=== PATIENT | male | born 1945 | race Caucasian/White ===

== ENCOUNTER 2023-03-11 20:57 | Emergency (ER) | payer MEDICARE, MEDICAID, SELFPAY ==
[2023-03-11 20:59] VITALS: BP 199/118; PULSE 132; RESP 18; TEMP 36.4; O2SAT 100; BMI 28.3
--- NOTE | 2023-03-11 21:01 | EX.ED.DYSGE1 ---
HPI History of Present Illness Chief Complaint: Complaint Detail of Chief Complaint: Pain since Olvera was removed at facility Informant: patient Onset/Context/Timing Onset: Hours Context: Sudden Onset Timing: Continuous Quality: Pain Location: Localized to the suprapubic region and penis Current Severity: Severe Maximum Severity: Severe Worsened by: Removal of Olvera Relieved by: Nothing Associated Symptoms Associated Symptoms: No other symptoms Narrative Narrative: Patient is a 77-year-old male who presents because of suprapubic pain and inability to urinate since Olvera was removed. He has history of urinary retention. He denies fever or chills. He is very hard of hearing. He denies nausea or vomiting. He has no other complaints. Prior similar symptoms: Yes (Per paperwork that accompanied patient from nursing facility) Recent Illness/Hospitalization: Yes [facility] Medical History (Updated 03/11/23 @ 21:[address] Stephen Choe MD) Alcohol abuse Complication of urinary stent Dementia Psychotic disorder with delusions Allergy/AdvReac Type Severity Reaction Status Date / Time No Known Allergies Allergy Verified 03/11/23 20:59 Social History (Updated 03/11/23 @ 21:[address] Stephen Choe MD) household members: none housing: assisted Smoking Status: Current every day smoker tobacco type: cigarettes substance use type: does not use ROS ROS ED Constitutional Constitutional ED: Denies chills, fever(s) or subjective Genitourinary Genitourinary ED: Reports other Details: Inability to urinate since Olvera was removed ; Denies dysuria, hematuria or urinary frequency Musculoskeletal Musculoskeletal: Denies arthralgias, back pain, myalgias or neck pain Integumentary Denies rash Allergic/Immunologic Allergic/Immunologic ED: Denies mouth swelling, tongue swelling or urticaria EXAM Physical Exam Const Vital Signs: 03/11/23 20:59 Temperature 97.5 F L Temperature Source Temporal Pulse Rate 132 H Respiratory Rate 18 Blood Pressure 199/118 H Blood Pressure Mean 145 Pulse Ox 100 Positive well nourished and well developed Constitutional Narrative: Patient is screaming in obvious discomfort. General Appearance ED: well developed; Negative for cyanotic, diaphoretic or pallor HEENT Reports moist mucous membranes HEENT Narrative: Head is atraumatic and normocephalic. Ears are normal. Nares are patent. Mucosa is moist. Patient is very hard of hearing. Eyes PERRL and EOMs intact bilaterally General Eye ED: Negative for pale conjunctiva or scleral icterus Neck no lymphadenopathy, supple and no JVD Chest Wall inspection of chest normal and palpation of chest normal Resp normal respiratory effort and clear to auscultation bilaterally Cardio regular rhythm, S1 normal heart sound, S2 normal heart sound and no murmurs Rate: tachycardic GI Negative for non-tender, non-distended or hepatosplenomegaly GI Narrative: Bladder is distended to percussion. Auscultation: hypoactive bowel sounds Narrative: External genital unremarkable. Back/Spine no CVA tenderness Extremity normal to inspection Neuro oriented x3 and CN's II-XII intact bilaterally Sensorium / Orientation: alert Skin no rashes or lesions noted and no wounds General Skin Exam: Negative for jaundice or pallor MDM MDM MDM Narrative Medical decision making narrative: We will bladder scan if bladder scan is positive we will place Olvera otherwise we will work-up his abdominal pain. Bladder scan is approximately 546 cc. Uro-Jet and Olvera was ordered. Treatment and Re-Evaluation :: Olvera was placed with greater than 800 cc of urine. Patient's pain is resolved. Patient be discharged to home/nursing facility Discharge Plan Triage Chief Complaint: Complaint ED Provider: Stephen Choe Dx/Rx/DC Orders Clinical Impression: Acute urinary retention Instructions: ED Olvera Catheter, Care, ED Urinary Retention, Male Primary Care Provider: Ramy Jay Referrals: Ramy Jay [Primary Care Provider] - 1 Week Disposition Disposition: Home, Self Care
[2023-03-11] MEDS: Lidocaine Jelly 2% 20 ML Syringe (URO-JET) 1 APPLIC TOPICAL (21:03)
--- NOTE | 2023-03-11 22:10 | ED.RN ---
REPORT CALLED TO MARYSOL HAN
[2023-03-11 22:29] VITALS: BP 157/86; PULSE 77; RESP 16; O2SAT 98
== END 2023-03-11 23:29 | disposition home or self-care (01) ==
LOC: ED 21:29
PROVIDERS: Emergency Provider Emergency Medicine; PCP Family Medicine; Visit Provider Emergency Medicine
DX: R33.9 Retention of urine, unspecified (principal); R10.2 Pelvic and perineal pain; F17.210 Nicotine dependence, cigarettes, uncomplicated; H91.90 Unspecified hearing loss, unspecified ear
CPT/HCPCS: 51702; 99285

== ENCOUNTER 2023-05-26 03:39 | Emergency (ER) | payer MEDICARE, MEDICAID, SELFPAY ==
[2023-05-26 03:41] VITALS: BP 167/84; PULSE 124; RESP 22; TEMP 36.1; O2SAT 98; BMI 27.4
--- NOTE | 2023-05-26 03:46 | EX.ED.GUMALE ---
HPI History of Present Illness Chief Complaint: Complaint Detail of Chief Complaint: Urinary retention Informant: patient Narrative Narrative: Patient presents secondary to urinary retention. EMS transported the patient from [place] [facility]. Apparently his Olvera catheter got removed. Patient states staff was unable to place a new one. He also has baseline dementia and states he does not know why he even has a catheter to begin with. He complains of pain over the suprapubic area. [facility] Medical History Alcohol abuse Complication of urinary stent Dementia Psychotic disorder with delusions Allergy/AdvReac Type Severity Reaction Status Date / Time No Known Allergies Allergy Verified 05/26/23 03:40 Social History household members: none housing: skilled nursing Smoking Status: Current every day smoker tobacco type: cigarettes substance use type: does not use ROS ROS ED Constitutional Constitutional ED: Denies chills or fever(s) ENT ENT ED: Denies rhinorrhea or sore throat Cardiovascular Cardiovascular: Denies chest pain Respiratory/Chest Respiratory/Chest: Denies cough or dyspnea Gastrointestinal Gastrointestinal: Reports abdominal pain; Denies nausea or vomiting Genitourinary Genitourinary ED: Reports difficulty urinating Musculoskeletal Musculoskeletal: Denies back pain or extremity pain Integumentary Denies Abrasions or rash Neurologic Neurologic: Denies headache(s) or weakness Psychiatric Psychiatric: Reports anxiety; Denies depression Allergic/Immunologic Allergic/Immunologic ED: Denies lip swelling or urticaria EXAM Physical Exam Const Vital Signs: 05/26/23 03:41 Temperature 97.0 F L Temperature Source Temporal Pulse Rate 124 H Respiratory Rate 22 H Blood Pressure 167/84 H Blood Pressure Mean 111 Pulse Ox 98 Oxygen Delivery Method Room Air Positive well nourished and well developed General Appearance ED: well developed HEENT Reports moist mucous membranes Eyes EOMs intact bilaterally Resp normal respiratory effort and clear to auscultation bilaterally Cardio regular rhythm Rate: tachycardic GI GI Narrative: Suprapubic tenderness. Extremity normal to inspection Neuro moves all extremities MDM MDM MDM Narrative Medical decision making narrative: Uro-Jet ordered along with Olvera catheter insertion. Nursing staff was able to place this without difficulty. The initially got 400 cc of urine back with continued slow flow. Patient be discharged back to [facility]. Discharge Plan Triage Chief Complaint: Complaint ED Provider: Florencia Mcintyre Dx/Rx/DC Orders Clinical Impression: Urinary retention Instructions: ED Olvera Catheter, Care, ED Urinary Retention, Male Primary Care Provider: Ramy Jay Referrals: Brennan Stevens MD [Med Staff - Active Staff] - As Needed Ramy Jay MD [Primary Care Provider] - Disposition Disposition: Senior Living Facility Discharge Location: [facility]
[2023-05-26] MEDS: Lidocaine Jelly 2% 20 ML Syringe (URO-JET) 1 APPLIC TOPICAL (03:58)
--- NOTE | 2023-05-26 04:21 | ED.RN ---
report called back to [facility] spoke with elieser mandujano
--- NOTE | 2023-05-26 05:15 | ED.RN ---
CALLED PHYSICIANS AT 0515 FOR AN UPDATE TO THE OUTSOURCE REQUEST. THEY SAID EVERYWHERE THEY TRIED DECLINED. [facility], AND [facility]. ALL DON'T HAVE TIMES THEY CALLED BUT [facility] SAID THAT A RIDE COULDN'T BE SET UP UNTIL AFTER 0700. PHYSICIANS ETA IS STILL AT 0700.
[2023-05-26 06:42] VITALS: BP 146/86; PULSE 76; RESP 18; O2SAT 98
== END 2023-05-26 08:33 | disposition skilled nursing facility (03) ==
LOC: ED 04:16
PROVIDERS: Emergency Provider Emergency Medicine; PCP Family Medicine; Visit Provider Emergency Medicine
DX: R33.9 Retention of urine, unspecified (principal); F03.90 Unspecified dementia, unspecified severity, without behavioral disturbance, psychotic disturbance, mood disturbance, and anxiety; F17.210 Nicotine dependence, cigarettes, uncomplicated
CPT/HCPCS: 51702; 99285

== ENCOUNTER 2023-07-29 23:43 | Emergency (ER) | payer MEDICARE, MEDICAID, SELFPAY ==
[2023-07-29 23:44] VITALS: BP 167/76; PULSE 84; RESP 18; TEMP 36.7; O2SAT 98; BMI 26.9
--- NOTE | 2023-07-30 00:05 | EDS_ITS ---
HPI History of Present Illness Chief Complaint: Olvera C/O Narrative Narrative: 78-year-old male [facility], with chronic indwelling Olvera catheter problem. He complains of pain at the site of his Olvera catheter. He states he has had it in for years. According to the group home papers he has prostatic hypertrophy and the need for indwelling Olvera catheter. While he is hard of hearing, he mentioned that the Olvera catheter might of come out, partially, then went back in. [facility] Medical History Alcohol abuse Atherosclerotic heart disease of [place] coronary artery without angina pectoris BPH (benign prostatic hyperplasia) Complication of urinary stent Dementia HTN (hypertension) Hyperlipemia Neuromuscular dysfunction of bladder, unspecified Psychotic disorder with delusions Home Medications atorvastatin 80 mg tablet 80 mg PO QHS 05/26/23 [History Last Taken Unknown] clopidogrel 75 mg tablet 75 mg PO DAILY 05/26/23 [History Last Taken Unknown] divalproex 125 mg capsule,delayed release sprinkle 125 mg PO Q8H 05/26/23 [History Last Taken Unknown] lisinopril 20 mg tablet 20 mg PO DAILY 05/26/23 [History Last Taken Unknown] metoprolol succinate 100 mg tablet,extended release 24 hr 100 mg PO DAILY 05/26/23 [History Last Taken Unknown] multivitamin (Daily Multi-Vitamin tablet) 1 tab PO DAILY 05/26/23 [History Last Taken Unknown] nifedipine 60 mg tablet,extended release 60 mg PO DAILY 05/26/23 [History Last Taken Unknown] olanzapine 10 mg intramuscular solution 10 mg IM DAILY PRN severe dementia 05/26/23 [History Last Taken Unknown] olanzapine 2.5 mg tablet 2.5 mg PO DAILY 05/26/23 [History Last Taken Unknown] risperidone 0.5 mg tablet 0.5 mg PO Q6H PRN PRN dementia 05/26/23 [History Last Taken Unknown] sertraline 25 mg tablet 25 mg PO Q24H 05/26/23 [History Last Taken Unknown] sertraline 50 mg tablet (Zoloft) 50 mg PO DAILY 05/26/23 [History Last Taken Unknown] tamsulosin 0.4 mg capsule 0.4 mg PO QHS 05/26/23 [History Last Taken Unknown] thiamine HCl (vitamin B1) 100 mg tablet 100 mg PO DAILY 05/26/23 [History Last Taken Unknown] Allergy/AdvReac Type Severity Reaction Status Date / Time No Known Allergies Allergy Verified 07/29/23 23:47 Surgical History Presence of coronary angioplasty implant and graft Social History household members: none housing: group home Smoking Status: Current every day smoker tobacco type: cigarettes substance use type: does not use ROS ROS ED ROS Narrative Constitutional: No fever, no chills. HEENT: No sore throat. No neck pain. No loss of vision. No rhinorrhea. Cardiovascular: No chest pain. No palpitations. No pedal edema. Respiratory: No cough, no shortness of breath. Abdominal: No abdominal pain. No nausea. No vomiting. Genitourinary: No dysuria. No hematuria. Pain at Olvera catheter site. Musculoskeletal: No myalgias. No arthralgias. Neurologic: No headaches. No dizziness. No lightheadedness. Skin: No rash. No change in color. Psychiatric: No depression. No anxiety. EXAM Physical Exam Narrative Exam Narrative: Afebrile. Vital signs noted. HEENT: Normocephalic. Atraumatic. PERRL, EOMI. Neck soft and supple. No point tenderness or step off. Cardiovascular: Regular rate and rhythm. No murmurs, rubs, or gallops appreciated. Respiratory: No tachypnea. Lungs clear to auscultation bilaterally. Gastrointestinal: Abdomen soft, nontender, with normoactive bowel sounds. No rebound or guarding. Genitourinary: Positive Olvera catheter draining yellow to cloudy urine. Neurological: Awake. Alert. Nonfocal, nonlateralizing. Skin: No rash. Normal color. No pallor. Musculoskeletal: No pedal edema. Full range of motion extremities. Const Vital Signs: 07/29/23 23:44 Temperature 98.0 F Temperature Source Temporal Pulse Rate 84 Respiratory Rate 18 Blood Pressure 167/76 H Blood Pressure Mean 106 Pulse Ox 98 Oxygen Delivery Method Room Air MDM MDM MDM Narrative Medical decision making narrative: Bladder scan will be performed to ensure that he is not in urinary retention. He may have Olvera catheter dislodgment as well. He also may have a urethritis from chronic indwelling Olvera. His Olvera catheter was exchanged with Uro-Jet. He was given a [place] tablet for analgesia as well. RN exchange Olvera catheter. Urinalysis was sent and there are 25-50 RBCs and WBCs of 10-25 but 0 bacteria. This was sent for culture. I do not feel antibiotics are currently indicated and prefer to wait for culture because he is not febrile here. I do not feel he requires laboratory work or imaging. I feel he can be discharged to follow-up with the primary care provider at the [facility]. Patient did complain that he does not feel that he needs a Olvera catheter, but I do not feel that the emergency department should decide whether or not to discontinue his Olvera catheter that is chronically placed. Disposition is discharged in stable condition. Lab Data Attestation: I reviewed the patient's lab results. Labs: Laboratory Results - last 24 hr 07/30/23 01:35 Urine Color Yellow Urine Clarity Cloudy Urine pH 7.0 Ur Specific [place] 1.015 Urine Protein 500 H Urine Glucose (UA) Normal Urine Ketones Negative Urine Occult Blood 250 H Urine Nitrite Negative Urine Bilirubin Negative Urine Urobilinogen Normal Ur Leukocyte Esterase 500 H Urine RBC 25-50 SEEN Urine WBC 10-25 SEEN Ur Squamous Epith Cells 0 SEEN Urine Bacteria 0 SEEN Urine Mucus 0 SEEN Discharge Plan Triage Chief Complaint: Olvera C/O ED Provider: Bran Segovia Dx/Rx/DC Orders Clinical Impression: Chronic indwelling Olvera catheter, Encounter for Olvera catheter replacement, Penile pain Instructions: ED Olvera Catheter, Care, ED Pain, Acute, Uncertain Cause Prescriptions: No Action atorvastatin 80 mg tablet 80 mg PO QHS clopidogrel 75 mg tablet 75 mg PO DAILY divalproex 125 mg capsule, delayed rel sprinkle 125 mg PO Q8H lisinopril 20 mg tablet 20 mg PO DAILY metoprolol succinate 100 mg tablet extended release 24 hr 100 mg PO DAILY multivitamin [Daily Multi-Vitamin] Tablet 1 tab PO DAILY nifedipine 60 mg tablet extended release 60 mg PO DAILY olanzapine 10 mg recon soln 10 mg IM DAILY PRN (Reason: severe dementia ) olanzapine 2.5 mg tablet 2.5 mg PO DAILY risperidone 0.5 mg tablet 0.5 mg PO Q6H PRN PRN (Reason: dementia ) sertraline 25 mg tablet 25 mg PO Q24H tamsulosin 0.4 mg capsule 0.4 mg PO QHS thiamine HCl (vitamin B1) 100 mg tablet 100 mg PO DAILY sertraline [Zoloft] 50 mg tablet 50 mg PO DAILY Primary Care Provider: Ramy Jay Referrals: Ramy Jay MD [Primary Care Provider] - As soon as possible Activity Restrictions/Additional Instructions: Your urinalysis showed white cells present, but no bacteria. Culture is pending to see if you will require antibiotics. However, you do not have a fever. Disposition Disposition: Home, Self Care
[2023-07-30] MEDS: HYDROcodone Bitartrate/Apap 5/325 Tablet PO (00:10)
[2023-07-30] MEDS: Lidocaine Jelly 2% 20 ML Syringe (URO-JET) 1 APPLIC TOPICAL (00:11)
[2023-07-30 01:41] LABS: Bacteria 0 SEEN /hpf (None Seen); Mucous, Urine 0 SEEN /hpf (<or=2+); Squamous Epithelial Cells - UA 0 SEEN /hpf (0-5)
[2023-07-30 01:42] LABS: Glucose, Dipstick Normal (Normal); Ketone-Dipstick Negative (Negative); Leukocyte Esterase-Dipstick 500 /ul (Negative); Nitrite-Dipstick Negative (Negative); Occult Blood-Urine 250 /ul (Negative); Protein-Dipstick 500 mg/dl (Negative); Specific Gravity, Urine 1.015 (1.002-1.030); Urine Bilirubin Dipstick Negative (Negative); Urine Urobilinogen Normal (Normal)
[2023-07-30 01:54] LABS: Color, Urine Yellow (Yellow)
[2023-07-30 01:55] LABS: Red Blood Cells-Urine 25-50 SEEN /hpf (0-5); Urine Clarity Cloudy (Clear); White Blood Cells 10-25 SEEN /hpf (0-5)
[2023-07-30 02:15] VITALS: BP 169/86; PULSE 88; RESP 18; O2SAT 96
== END 2023-07-30 07:03 | disposition home or self-care (01) ==
PROVIDERS: Emergency Provider Emergency Medicine; PCP Family Medicine; Visit Provider Emergency Medicine
DX: N48.89 Other specified disorders of penis (principal); F03.90 Unspecified dementia, unspecified severity, without behavioral disturbance, psychotic disturbance, mood disturbance, and anxiety; F17.210 Nicotine dependence, cigarettes, uncomplicated; I25.10 Atherosclerotic heart disease of native coronary artery without angina pectoris; N40.0 Benign prostatic hyperplasia without lower urinary tract symptoms; E78.5 Hyperlipidemia, unspecified; I10 Essential (primary) hypertension; Z79.899 Other long term (current) drug therapy; Z79.02 Long term (current) use of antithrombotics/antiplatelets; Z95.5 Presence of coronary angioplasty implant and graft
CPT/HCPCS: 51702; 81001; 87077; 87086; 87088; 87186; 99283

== ENCOUNTER 2023-09-28 02:11 | Emergency (ER) | payer MEDICARE, MEDICAID, SELFPAY ==
[2023-09-28] VITALS (14 sets, daily range): BP systolic 134–199; BP diastolic 66–109; PULSE 71–124; RESP 16–20; TEMP 36.4–37.2; O2SAT 92–99; BMI 40.9
[2023-09-28] MEDS: HYDROcodone Bitartrate/Apap 5/325 Tablet PO (02:22)
[2023-09-28] MEDS: Lidocaine Jelly 2% 20 ML Syringe (URO-JET) 1 APPLIC TOPICAL (02:23)
--- NOTE | 2023-09-28 02:26 | EX.ED.DYSGE1 ---
HPI History of Present Illness Chief Complaint: Olvera C/O Informant: patient, EMS and SNF Narrative Narrative: 78-year-old male presenting to the emergency room with Olvera catheter problem. Patient has a history of dementia. Tells me that he has had a catheter in place for 5 months. In July he was seen with a Olvera catheter problem needed replaced. At that time he stated that the catheter had been in for years. He has a history of BPH and requires it for urinary retention. 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 I am attempting to try to figure out which antibiotic he is currently on. He does not know if he has a urologist or infectious disease doctor [facility] Medical History Alcohol abuse Atherosclerotic heart disease of [place] coronary artery without angina pectoris BPH (benign prostatic hyperplasia) Complication of urinary stent Dementia HTN (hypertension) Hyperlipemia Neuromuscular dysfunction of bladder, unspecified Psychotic disorder with delusions Home Medications atorvastatin 80 mg tablet 80 mg PO QHS 05/26/23 [History Last Taken Unknown] clopidogrel 75 mg tablet 75 mg PO DAILY 05/26/23 [History Last Taken Unknown] divalproex 125 mg capsule,delayed release sprinkle 125 mg PO Q8H 05/26/23 [History Last Taken Unknown] lisinopril 20 mg tablet 20 mg PO DAILY 05/26/23 [History Last Taken Unknown] metoprolol succinate 100 mg tablet,extended release 24 hr 100 mg PO DAILY 05/26/23 [History Last Taken Unknown] multivitamin (Daily Multi-Vitamin tablet) 1 tab PO DAILY 05/26/23 [History Last Taken Unknown] nifedipine 60 mg tablet,extended release 60 mg PO DAILY 05/26/23 [History Last Taken Unknown] olanzapine 10 mg intramuscular solution 10 mg IM DAILY PRN severe dementia 05/26/23 [History Last Taken Unknown] olanzapine 2.5 mg tablet 2.5 mg PO DAILY 05/26/23 [History Last Taken Unknown] risperidone 0.5 mg tablet 0.5 mg PO Q6H PRN PRN dementia 05/26/23 [History Last Taken Unknown] sertraline 25 mg tablet 25 mg PO Q24H 05/26/23 [History Last Taken Unknown] sertraline 50 mg tablet (Zoloft) 50 mg PO DAILY 05/26/23 [History Last Taken Unknown] tamsulosin 0.4 mg capsule 0.4 mg PO QHS 05/26/23 [History Last Taken Unknown] thiamine HCl (vitamin B1) 100 mg tablet 100 mg PO DAILY 05/26/23 [History Last Taken Unknown] Allergy/AdvReac Type Severity Reaction Status Date / Time No Known Allergies Allergy Verified 07/29/23 23:47 Surgical History Presence of coronary angioplasty implant and graft Social History household members: none housing: [facility] Smoking Status: Current every day smoker tobacco type: cigarettes substance use type: does not use ROS ROS ED Constitutional Constitutional ED: Denies chills or weight loss Eyes Eyes: Denies change in vision or diplopia ENT ENT ED: Denies ear pain, rhinorrhea or sore throat Cardiovascular Cardiovascular: Denies chest pain, orthopnea, palpitations or racing heartbeat Respiratory/Chest Respiratory/Chest: Denies cough, dyspnea or orthopnea Gastrointestinal Gastrointestinal: Denies abdominal pain, diarrhea, nausea or vomiting Genitourinary Genitourinary ED: Reports other Details: Penile pain Chronic indwelling Olvera ; Denies dysuria, hematuria or urinary frequency Musculoskeletal Musculoskeletal: Denies arthralgias or myalgias Integumentary Denies abscess or rash Neurologic Neurologic: Denies headache(s) or weakness Psychiatric Psychiatric: Denies anxiety, depression, suicidal ideation or suicidal thoughts Endocrine Endocrinology: Denies polydipsia, polyphagia or polyuria Allergic/Immunologic Allergic/Immunologic ED: Denies mouth swelling, tongue swelling or urticaria EXAM Physical Exam Const Vital Signs: 09/28/23 02:12 09/28/23 02:12 09/28/23 03:16 Temperature 97.7 F L 97.7 F L Temperature Source Temporal Temporal Pulse Rate 97 89 Respiratory Rate 18 19 H Blood Pressure 185/97 H 185/97 H 153/109 H Blood Pressure Mean 126 126 123 Pulse Ox 99 96 Oxygen Delivery Method Room Air Room Air 09/28/23 04:12 Temperature Temperature Source Pulse Rate 98 Respiratory Rate 19 H Blood Pressure 158/103 H Blood Pressure Mean 121 Pulse Ox 96 Oxygen Delivery Method Room Air Positive well nourished and well developed General Appearance ED: well developed HEENT Reports normocephalic, head/scalp atraumatic and moist mucous membranes Eyes PERRL and EOMs intact bilaterally Neck no lymphadenopathy, supple and no JVD Resp normal respiratory effort and clear to auscultation bilaterally Cardio regular rate, regular rhythm and no murmurs GI normal to inspection, nondistended, normoactive bowel sounds and non-tender Palpation: soft Narrative: Circumcised male with a Olvera catheter in place. Catheter itself appears dark and from her traditional color. There is some dark urine in the Olvera catheter bag and tubing. There is some erythema on the ventral surface of the penile shaft near the frenulum. No foul smell from the patient. Back/Spine no CVA tenderness and normal ROM Extremity normal to inspection General Extremety ED: Negative for edema General Extremity: Negative for edema Neuro CN's II-XII intact bilaterally Sensorium / Orientation: alert and orientation impaired Motor Exam: strength 5/5 throughout Psych mental status grossly normal Mood & Affect: Negative for depressed or tearful Skin no rashes or lesions noted and no wounds MDM MDM MDM Narrative Medical decision making narrative: Olvera catheter does not appear to be draining. It is very discolored. There is about 4 inches of regular colored Olvera outside of the meatus suggesting that it may not be in the right position. Patient does not want us to replace the Olvera. The patient's power of mergers and acquisitions attorney is an mergers and acquisitions attorney and the phone number listed is a mergers and acquisitions attorney's office. Patient bladder scanned at 400 cc. He did allow us to attempt to irrigate but began getting IV rate at 20 cc injection. No return of the fluid. Patient is not currently on medical emergency though his urinary retention will eventually become problematic. We are going to wait to the daytime and see if we get a hold of the power of mergers and acquisitions attorney for permission to replace the Olvera. This may need to be done with sedation. Care of the patient will be assigned to the daytime physician at shift change. Currently bladder scan showing approximately 500 cc of fluid. History & Record Review Discussion w/independent historian: EMS personnel and Patient Discharge Plan Triage Chief Complaint: Olvera C/O ED Provider: Deepak Dow Dx/Rx/DC Orders Clinical Impression: Benign prostatic hyperplasia, Complication of Olvera catheter Prescriptions: No Action atorvastatin 80 mg tablet 80 mg PO QHS clopidogrel 75 mg tablet 75 mg PO DAILY divalproex 125 mg capsule, delayed rel sprinkle 125 mg PO Q8H lisinopril 20 mg tablet 20 mg PO DAILY metoprolol succinate 100 mg tablet extended release 24 hr 100 mg PO DAILY multivitamin [Daily Multi-Vitamin] Tablet 1 tab PO DAILY nifedipine 60 mg tablet extended release 60 mg PO DAILY olanzapine 10 mg recon soln 10 mg IM DAILY PRN (Reason: severe dementia ) olanzapine 2.5 mg tablet 2.5 mg PO DAILY risperidone 0.5 mg tablet 0.5 mg PO Q6H PRN PRN (Reason: dementia ) sertraline 25 mg tablet 25 mg PO Q24H tamsulosin 0.4 mg capsule 0.4 mg PO QHS thiamine HCl (vitamin B1) 100 mg tablet 100 mg PO DAILY sertraline [Zoloft] 50 mg tablet 50 mg PO DAILY Primary Care Provider: Ramy Jay Referrals: Ramy Jay MD [Primary Care Provider] -
--- NOTE | 2023-09-28 03:12 | ED.RN ---
This RN bladder scanned the patient and got 453ml.
--- NOTE | 2023-09-28 03:16 | ED.RN ---
This RN attempted to call the patients brother because the patient is refusing another catheter if we remove the one he had in from the intermediate.
--- NOTE | 2023-09-28 03:49 | ED.RN ---
Prior to calling the patients brother, this RN attempted to call the legal guardian and got voicemail both times. The [facility] nurse stated she called twice and got a voicemail as well.
--- NOTE | 2023-09-28 06:01 | ED.RN ---
This RN bladder scanned the patient and he has 543 ml noted in his bladder
--- NOTE | 2023-09-28 06:04 | ED.RN ---
This RN attempted to call his legal guardian again. I did not get an answer.
--- NOTE | 2023-09-28 06:50 | ED.RN ---
This RN went in to do morning vitals and the patient stated cant you see im trying to sleep. This RN charted patient refusal due to that comment.
--- NOTE | 2023-09-28 09:10 | ED.RN ---
THis RN attempted to call to get consent again. Voicemail left. Office opens at 0900 and they still did not answer.
--- NOTE | 2023-09-28 09:30 | CM.ED ---
Social Work Collaboration with Prabhu Littlejohn RN who reports patient has a legal guardian, but unable to reach thus far. Staff need to speak with the guardian in order to get consent for care. Patient is from [facility]. Called [facility] and spoke with social media manager Hoda. Confirmed if Hoda has an additional phone number for the patient, which Hoda reports does not. Hoda often emails the guardian and provided that email to this policy writer typist: [email or web address]. Confirmed email twice with Hoda. Asked Hoda to email letter of guardianship to this policy writer typist, to be added to patient's chart. Hoda emailed letter of guardianship. Printed for patient's medical record. Emailed Legal guardian, Gerber Martinez, asking for Gerber to respond to the ED, as consent to care is needed. Updated Annetta. Plan: Return to [facility] when medically ready. -ADAM Sanchez
--- NOTE | 2023-09-28 09:30 | ED.RN ---
0840 THIS RN CALLED PT [facility] OFFICE GOT NO ANSWER. 0905 THIS RN CALLED PT [facility] OFFICE ATTEMPTING TO OBTAIN CONSENT TO TREAT PATIENT PATIENT IS REFUSING TREATMENT AT THIS TIME. 0906 THIS RN CONTACTED [facility] IN ORDER TO TRY AND GATHER FURTHER INFORMATION TO CONTACT LEGAL GUARDIAN. THIS RN WAS TRANSFERRED TO THE UNIT WHERE PT RESIDES, THERE WAS NO ANSWER SO THIS RN LEFT A VOICE MESSAGE WITH CALLBACK NUMBER. [id number] HIPOLITO BURNETTE NOTIFIED AT FAILED ATTEMPTS TO CONTACT LEGAL GUARDIAN. YOMAIRA REPORTS SHE WILL INVESTIGATE FURTHER.
--- NOTE | 2023-09-28 10:44 | ED.RN ---
THIS RN SPOKE TO MADY ARCE PT [facility] TO OBTAIN CONSENT TO TREAT THE PATIENT. MADY IS INFORMED OF PATIENT REASON FOR VISIT AND PLAN OF CARE. MADY DENIES FURTHER QUESTIONS AND GIVES THIS RN CELL PHONE IN WHICH TO REACH HIM BETTER. PHONE NUMBER IS [phone].
[2023-09-28] MEDS: Ketamine HCl 500 MG/5 ML Vial 400 MG IM (11:44)
[2023-09-28] MEDS: Ondansetron ODT 4 MG Tablet PO (11:44)
[2023-09-28 11:56] LABS: Mucous, Urine 0 SEEN /hpf (<or=2+); Squamous Epithelial Cells - UA 0 SEEN /hpf (0-5)
[2023-09-28 12:17] LABS: Color, Urine Yellow (Yellow); Glucose, Dipstick Normal (Normal); Ketone-Dipstick 5 mg/dl (Negative); Leukocyte Esterase-Dipstick 100 /ul (Negative); Nitrite-Dipstick Negative (Negative); Occult Blood-Urine 250 /ul (Negative); Protein-Dipstick 100 mg/dl (Negative); Urine Bilirubin Dipstick Negative (Negative); Urine Clarity Sl. Cloudy (Clear); Urine Urobilinogen Normal (Normal)
[2023-09-28 12:24] LABS: Bacteria 2+ /hpf (None Seen); Red Blood Cells-Urine > 100 SEEN /hpf (0-5); White Blood Cells 10-25 SEEN /hpf (0-5)
[2023-09-28] MEDS: Nitrofurantoin Macrocrystals 100 MG Capsule PO (14:39)
--- NOTE | 2023-09-28 15:04 | ED.RN ---
JEANNETTE CALLED, ETA 1 HOUR (1600)
== END 2023-09-28 16:05 | disposition home or self-care (01) ==
PROVIDERS: Emergency Provider Emergency Medicine; PCP Family Medicine; Visit Provider Emergency Medicine
DX: T83.091A Other mechanical complication of indwelling urethral catheter, initial encounter (principal); F03.90 Unspecified dementia, unspecified severity, without behavioral disturbance, psychotic disturbance, mood disturbance, and anxiety; R33.9 Retention of urine, unspecified; N40.0 Benign prostatic hyperplasia without lower urinary tract symptoms; F17.210 Nicotine dependence, cigarettes, uncomplicated; I25.10 Atherosclerotic heart disease of native coronary artery without angina pectoris; I10 Essential (primary) hypertension; E78.5 Hyperlipidemia, unspecified; Z79.899 Other long term (current) drug therapy; Z79.02 Long term (current) use of antithrombotics/antiplatelets; Z95.5 Presence of coronary angioplasty implant and graft
CPT/HCPCS: 51702; 81001; 87077; 87086; 87088; 87186; 96372; 99152; 99284

== ENCOUNTER 2023-12-03 14:02 | Emergency (ER) | payer MEDICARE, MEDICAID, SELFPAY ==
[2023-12-03 14:02] VITALS: PULSE 82; RESP 18; TEMP 36; O2SAT 100; BMI 27.2
--- NOTE | 2023-12-03 14:22 | EDS_ITS ---
HPI History of Present Illness Chief Complaint: Olvera C/O Detail of Chief Complaint: Dislodged Olvera catheter. History of urinary retention. Informant: patient Pain Onset: Today Timing: Continuous Current Severity: Mild Maximum Severity: Mild Narrative Narrative: 78-year-old male from extended-care facility history of CAD, dementia and mental illness. Reportedly had a dislodged Olvera catheter that is now not in place. He history of urinary retention needing Olvera catheter placed several months ago. Is complaining of suprapubic pain. Denies any gross hematuria. Prior similar symptoms: Yes Recent Illness/Hospitalization: No PFSH PFS Medical History Atherosclerotic heart disease of [place] coronary artery without angina pectoris Hyperlipemia HTN (hypertension) Neuromuscular dysfunction of bladder, unspecified BPH (benign prostatic hyperplasia) Complication of urinary stent Alcohol abuse Psychotic disorder with delusions Dementia Home Medications ?Medication ?Instructions ?Recorded ?Last Taken ?Type atorvastatin 80 mg tablet 80 mg PO QHS CHOLESTEROL 05/26/23 Unknown History clopidogrel 75 mg tablet 75 mg PO DAILY BLOOD THINNER 05/26/23 Unknown History lisinopril 20 mg tablet 20 mg PO DAILY BLOOD PRESSURE 05/26/23 Unknown History metoprolol succinate 100 mg 100 mg PO DAILY BLOOD PRESSURE 05/26/23 Unknown History tablet,extended release 24 hr multivitamin (Daily Multi-Vitamin 1 tab PO DAILY HEALTH MAINTENANCE 05/26/23 Unknown History tablet) nifedipine 60 mg tablet,extended 60 mg PO DAILY BLOOD PRESSURE 05/26/23 Unknown History release tamsulosin 0.4 mg capsule 0.4 mg PO QHS BPH 05/26/23 Unknown History thiamine HCl (vitamin B1) 100 mg 100 mg PO DAILY SUPPLEMENT 05/26/23 Unknown History tablet acetaminophen 325 mg tablet 975 mg PO Q8H PRN MILD PAIN 09/28/23 Unknown History bisacodyl 10 mg rectal suppository 10 mg [place] Q24H PRN CONSTIPATION 09/28/23 Unknown History hydrocortisone 2.5 % topical cream 1 applic topical DAILY PRN 09/28/23 Unknown History HEMORRHOIDS hydrocortisone 2.5 % topical cream 1 applic topical BID HEMORRHOIDS 09/28/23 Unknown History with perineal applicator loperamide 2 mg capsule 2 mg PO Q4H PRN DIARRHEA 09/28/23 Unknown History magnesium hydroxide 400 mg/5 mL 30 ml PO Q24H PRN CONSTIPATION 09/28/23 Unknown History oral suspension (Milk of Magnesia) mineral oil 118 ml NH Q24H PRN CONSTIPATION 09/28/23 Unknown History nitrofurantoin 100 mg PO Q12 #14 CAPSULES 09/28/23 Unknown Rx monohydrate/macrocrystals 100 mg capsule olanzapine 5 mg disintegrating 2.5 mg PO QHS MOOD 09/28/23 Unknown History tablet polyethylene glycol 3350 17 17 g PO Q12H PRN CONSTIPATION 09/28/23 Unknown History gram/dose oral powder sulfamethoxazole 800 1 tab PO Q12H BPH 09/28/23 Unknown History mg-trimethoprim 160 mg tablet (Bactrim DS) valproic acid (as sodium salt) 250 125 mg PO TID MOOD 09/28/23 Unknown History mg/5 mL oral solution nitrofurantoin 100 mg PO Q12H 7 days #14 caps 12/03/23 Unknown Rx monohydrate/macrocrystals 100 mg capsule (Macrobid) Allergy/AdvReac Type Severity Reaction Status Date / Time No Known Allergies Allergy Verified 12/03/23 14:02 Surgical History Presence of coronary angioplasty implant and graft Social History household members: none housing: intermediate Smoking Status: Current every day smoker tobacco type: cigarettes and pipe substance use type: does not use ROS ROS ED ROS Narrative Denies recent illness. Review of Systems ROS Unobtainable: Denies due to encephalopathy Constitutional Constitutional ED: Denies chills, fever(s), subjective, sweats or weight loss Eyes Eyes: Denies blurry vision, change in vision or other ENT ENT ED: Denies ear pain, rhinorrhea or sore throat Cardiovascular Cardiovascular: Denies chest pain, palpitations or racing heartbeat Respiratory/Chest Respiratory/Chest: Denies cough or dyspnea Gastrointestinal Gastrointestinal: Denies abdominal pain, constipation, diarrhea, melena, nausea or vomiting Genitourinary Genitourinary ED: Denies dysuria, hematuria or urinary frequency Musculoskeletal Musculoskeletal: Denies arthralgias or back pain Integumentary Denies abscess or rash Neurologic Neurologic: Denies headache(s) Psychiatric Psychiatric: Denies anxiety Endocrine Endocrinology: Denies polydipsia Hematologic/Lymphatic Hematologic/Lymphatic: Denies easy bleeding Allergic/Immunologic Allergic/Immunologic ED: Denies mouth swelling or tongue swelling EXAM Physical Exam Narrative Exam Narrative: 78-year-old male lying in bed. Vital signs are stable. He is afebrile. Pulse ox 100% on room air no signs hypoxia. Patient is verbally aggressive. H EENT exam unremarkable atraumatic. Moist extremities. Lungs clear to auscultation. Heart regular rhythm. Chest wall and ribs nontender. Abdomen soft nondistended normal bowel sounds no peritoneal signs. Suprapubic tenderness. External exam unremarkable. Circumcised male. No gross blood. Currently there is no catheter in place. Moving all 4 extremities. Nontender no edema. Neurologically he is awake and alert. Answering questions and following commands. Const Vital Signs: 12/03/23 14:02 Temperature 96.8 F L Temperature Source Oral Pulse Rate 82 Respiratory Rate 18 Pulse Ox 100 Oxygen Delivery Method Room Air Positive well nourished and well developed; Negative for obese, cachectic, contractures or unkempt General Appearance ED: well developed and NAD; Negative for unkempt, cachectic, contractures or pallor Nutritional Appearance: Negative for cachectic or obese HEENT Reports moist mucous membranes; Denies dry mucous membranes normocephalic and atraumatic; Negative for trauma or tenderness Mouth ED: No dry mucous membranes Mouth: No dry mucous membranes Eyes PERRL and EOMs intact bilaterally General Eye ED: Negative for pale conjunctiva or scleral icterus Neck no lymphadenopathy, supple and no JVD General: Negative for tenderness Resp normal respiratory effort and clear to auscultation bilaterally Effort and Inspection: Negative for retractions Auscultation: Negative for rales, rhonchi or wheezes Cardio regular rate, regular rhythm, S1 normal heart sound, S2 normal heart sound and no murmurs Rate: Negative for bradycardia or tachycardic Rhythm: Negative for abnormal rhythm Heart Sounds: Negative for other GI non-distended and no masses; Negative for non-tender GI Narrative: Suprapubic tenderness. Unremarkable exam. Circumcised male. No gross blood. Inspection: Negative for abdominal distention Auscultation: normoactive bowel sounds Palpation: soft and tender; Negative for guarding Back/Spine no CVA tenderness General Back: Negative for CVA tenderness Cervical Spine: Negative for cervical spine tenderness Thoracic Spine / Upper Back: Negative for thoracic spinal tenderness Lumbar Spine / Lower Back: Negative for lumbar spinal tenderness Extremity normal to inspection General Extremety ED: Negative for edema, pulses abnormal or tenderness General Extremity: Negative for edema or pulses abnormal Neuro moves all extremities and no focal motor deficits Sensorium / Orientation: alert and oriented to person; Negative for confused, lethargic or stuporous Motor Exam: strength 5/5 throughout Psych mental status grossly normal Psych Narrative: Verbally aggressive. Verbally abusive. Appearance: Negative for unkempt Attitude: No agitated Mood & Affect: anxious; Negative for depressed Thought Process: normal thought process Thought Content: normal thought content Skin General Skin Exam: Negative for jaundice or pallor Lesions: no lesions Rashes: no rashes Trauma: Negative for abrasion MDM MDM MDM Narrative Medical decision making narrative: 70-year-old male history of urinary retention Olvera catheter was either pulled out or came out today at the intermediate. Replace it and check his UA. Repeat exam patient's had a Olvera catheter placed by nursing without any significant difficulty. He drained out about 300+ cc of urine. UA showed 10-25 red cells and 10-25 white cells and 1+ bacteria. Since the patient has a chronic indwelling Olvera catheter at times and has had positive urine cultures in the past that were sensitive to Macrobid I will place him on a week of Macrobid and send a culture. History & Record Review Discussion w/independent historian: Patient Additional record(s) reviewed:: Prior inpatient record, Prior outpatient record, Prior ED visit, Prior labs and No prior records Lab Data Attestation: I reviewed the patient's lab results. Lab results narrative: UA shows 10-25 red cells. 10-25 white cells. 1+ bacteria. No nitrites. Urine culture sent. Labs: Laboratory Results - last 24 hr 12/03/23 14:45 Urine Color Yellow Urine Clarity Clear Urine pH 6.0 Ur Specific [place] 1.010 Urine Protein 15 H Urine Glucose (UA) Normal Urine Ketones Negative Urine Occult Blood 150 H Urine Nitrite Negative Urine Bilirubin Negative Urine Urobilinogen Normal Ur Leukocyte Esterase 500 H Urine RBC 10-25 SEEN Urine WBC 10-25 SEEN Ur Squamous Epith Cells 0 SEEN Urine Bacteria 1+ Urine Mucus 0 SEEN Discharge Plan Triage Chief Complaint: Olvera C/O ED Provider: Roberto Ibarra Dx/Rx/DC Orders Clinical Impression: History of urinary retention, Problem with Olvera catheter, Cystitis Instructions: ED Bladder Infection, Male (Adult) Prescriptions: New nitrofurantoin monohyd/m-cryst [Macrobid] 100 mg capsule 100 mg PO Q12H 7 Days Qty: 14 0RF Rx Instructions: must administer with a meal/food No Action atorvastatin 80 mg tablet 80 mg PO QHS clopidogrel 75 mg tablet 75 mg PO DAILY lisinopril 20 mg tablet 20 mg PO DAILY metoprolol succinate 100 mg tablet extended release 24 hr 100 mg PO DAILY multivitamin [Daily Multi-Vitamin] Tablet 1 tab PO DAILY nifedipine 60 mg tablet extended release 60 mg PO DAILY tamsulosin 0.4 mg capsule 0.4 mg PO QHS thiamine HCl (vitamin B1) 100 mg tablet 100 mg PO DAILY acetaminophen 325 mg tablet 975 mg PO Q8H PRN (Reason: MILD PAIN ) sulfamethoxazole-trimethoprim [Bactrim DS] 800-160 mg tablet 1 tab PO Q12H Rx Instructions: TAKE ONE TABLET BY MOUTH EVERY 12 HOURS FOR 7 DAYS. START DATE: 09/25/2023 END DATE: 10/02/2023 bisacodyl 10 mg suppository 10 mg NH Q24H PRN (Reason: CONSTIPATION ) mineral oil Enema 118 ml NH Q24H PRN (Reason: CONSTIPATION ) hydrocortisone 2.5 % cream 1 applic topical DAILY PRN (Reason: HEMORRHOIDS ) Rx Instructions: APPLY ONE APPLICATION TOPICALLY TO RECTUM NEEDED FOR HEMORRHOIDS. hydrocortisone 2.5 % cream with perineal applicator 1 applic topical BID Rx Instructions: APPLY ONE APPLICATION TWICE DAILY TO RECTUM FOR HEMORRHOIDS. loperamide 2 mg capsule 2 mg PO Q4H PRN (Reason: DIARRHEA ) Rx Instructions: administer after each loose stool until symptoms controlled; do not exceed 8 mg per 24 hrs magnesium hydroxide [Milk of Magnesia] 400 mg/5 mL suspension 30 ml PO Q24H PRN (Reason: CONSTIPATION ) polyethylene glycol 3350 17 gram/dose powder 17 g PO Q12H PRN (Reason: CONSTIPATION ) olanzapine 5 mg tablet,disintegrating 2.5 mg PO QHS valproic acid (as sodium salt) 250 mg/5 mL solution 125 mg PO TID nitrofurantoin monohyd/m-cryst [nitrofurantoin monohyd/m-cryst] 100 mg capsule 100 mg PO Q12 Qty: 14 0RF Primary Care Provider: Ramy Jay: Ramy Jay MD [Primary Care Provider] - 3-5 Days if not improving Activity Restrictions/Additional Instructions: Antibiotic Macrobid 1 pill twice a day for 7 days. Suspected urinary tract infection. A urine culture was sent. That should return in 2 days. Print Language: Vietnamese Disposition Disposition: Home, Self Care
[2023-12-03 14:53] LABS: Mucous, Urine 0 SEEN /hpf (<or=2+); Squamous Epithelial Cells - UA 0 SEEN /hpf (0-5)
[2023-12-03] MEDS: Lidocaine Jelly 2% 20 ML Syringe (URO-JET) 1 APPLIC TOPICAL (14:53)
[2023-12-03 15:00] LABS: Color, Urine Yellow (Yellow); Glucose, Dipstick Normal (Normal); Ketone-Dipstick Negative (Negative); Leukocyte Esterase-Dipstick 500 /ul (Negative); Nitrite-Dipstick Negative (Negative); Occult Blood-Urine 150 /ul (Negative); Protein-Dipstick 15 mg/dl (Negative); Urine Bilirubin Dipstick Negative (Negative); Urine Clarity Clear (Clear); Urine Urobilinogen Normal (Normal)
[2023-12-03 15:21] LABS: Red Blood Cells-Urine 10-25 SEEN /hpf (0-5); White Blood Cells 10-25 SEEN /hpf (0-5)
[2023-12-03 15:22] LABS: Bacteria 1+ /hpf (None Seen)
--- NOTE | 2023-12-03 15:53 | ED.RN ---
REPORT GIVEN TO [facility] AND PT [facility]. PT RETURNING TO [facility]
[2023-12-03 16:01] VITALS: BP 160/75; PULSE 72; RESP 16; TEMP 36; O2SAT 98
[2023-12-03] MEDS: Nitrofurantoin Macrocrystals 100 MG Capsule PO (16:02)
== END 2023-12-03 17:21 | disposition home or self-care (01) ==
PROVIDERS: Emergency Provider Emergency Medicine; PCP Family Medicine; Visit Provider Emergency Medicine
DX: T83.011A Breakdown (mechanical) of indwelling urethral catheter, initial encounter (principal); F03.90 Unspecified dementia, unspecified severity, without behavioral disturbance, psychotic disturbance, mood disturbance, and anxiety; N30.90 Cystitis, unspecified without hematuria; R10.2 Pelvic and perineal pain; I25.10 Atherosclerotic heart disease of native coronary artery without angina pectoris; F17.210 Nicotine dependence, cigarettes, uncomplicated; E78.5 Hyperlipidemia, unspecified; I10 Essential (primary) hypertension; Y82.8 Other medical devices associated with adverse incidents
CPT/HCPCS: 51702; 81001; 87077; 87086; 87088; 87186; 99283; 99285

== ENCOUNTER 2024-02-15 20:57 | Inpatient (IN) | payer MEDICARE, MEDICAID, SELFPAY ==
[2024-02-15 20:58] VITALS: BP 114/54; PULSE 70; RESP 16; TEMP 36.3; O2SAT 98
--- NOTE | 2024-02-15 21:51 | EDS_ITS ---
HPI History of Present Illness Chief Complaint: Complaint Detail of Chief Complaint: Dark brown urine noted in Olvera Informant: SNF (Concern for change in mental status, combative. He has a chronic Olvera.) and other Limited: dementia Onset/Context/Timing Onset: Today Context: - (Unknown) Timing: - (He is not lethargic here nor is he combative here.) Quality: Patient has no recall and cannot contribute with read suspect to his histor Location: Presumed Current Severity: Unable to determine Maximum Severity: Unable to determine Worsened by: Unknown Relieved by: Unable to determine Associated Symptoms Associated Symptoms: Unable to determine Narrative Narrative: Patient is a 78-year-old male. He was sent in because he was lethargic combative. He is not lethargic here. He cannot tell me why he is here and he denies everything. He has a tattoo on his left forearm and does not know the significance or that he had a tattoo. Patient indwelling Olvera. Uncertain why. He does have history of BPH. He was seen December 02 for reasons and determined to have cystitis. Prior similar symptoms: Yes Recent Illness/Hospitalization: No PFSH PFS Medical History Atherosclerotic heart disease of [place] coronary artery without angina pectoris Hyperlipemia HTN (hypertension) Neuromuscular dysfunction of bladder, unspecified BPH (benign prostatic hyperplasia) Complication of urinary stent Alcohol abuse Psychotic disorder with delusions Dementia Home Medications ?Medication ?Instructions ?Recorded ?Last Taken ?Type atorvastatin 80 mg tablet 80 mg PO QHS CHOLESTEROL 05/26/23 Unknown History clopidogrel 75 mg tablet 75 mg PO DAILY BLOOD THINNER 05/26/23 Unknown History lisinopril 20 mg tablet 20 mg PO DAILY BLOOD PRESSURE 05/26/23 Unknown History metoprolol succinate 100 mg 100 mg PO DAILY BLOOD PRESSURE 05/26/23 Unknown History tablet,extended release 24 hr multivitamin (Daily Multi-Vitamin 1 tab PO DAILY HEALTH MAINTENANCE 05/26/23 Unknown History tablet) nifedipine 60 mg tablet,extended 60 mg PO DAILY BLOOD PRESSURE 05/26/23 Unknown History release tamsulosin 0.4 mg capsule 0.4 mg PO QHS BPH 05/26/23 Unknown History thiamine HCl (vitamin B1) 100 mg 100 mg PO DAILY SUPPLEMENT 05/26/23 Unknown History tablet acetaminophen 325 mg tablet 975 mg PO Q8H PRN MILD PAIN 04/10/24 Unknown History bisacodyl 10 mg rectal suppository 10 mg SD Q24H PRN CONSTIPATION 09/28/23 Unknown History hydrocortisone 2.5 % topical cream 1 applic topical DAILY PRN 09/28/23 Unknown History HEMORRHOIDS hydrocortisone 2.5 % topical cream 1 applic topical BID HEMORRHOIDS 09/28/23 Unknown History with perineal applicator loperamide 2 mg capsule 2 mg PO Q4H PRN DIARRHEA 09/28/23 Unknown History magnesium hydroxide 400 mg/5 mL 30 ml PO Q24H PRN CONSTIPATION 09/28/23 Unknown History oral suspension (Milk of Magnesia) mineral oil 118 ml SD Q24H PRN CONSTIPATION 09/28/23 Unknown History nitrofurantoin 100 mg PO Q12 #14 CAPSULES 09/28/23 Unknown Rx monohydrate/macrocrystals 100 mg capsule olanzapine 5 mg disintegrating 2.5 mg PO QHS MOOD 09/28/23 Unknown History tablet polyethylene glycol 3350 17 17 g PO Q12H PRN CONSTIPATION 09/28/23 Unknown History gram/dose oral powder sulfamethoxazole 800 1 tab PO Q12H BPH 09/28/23 Unknown History mg-trimethoprim 160 mg tablet (Bactrim DS) valproic acid (as sodium salt) 250 125 mg PO TID MOOD 09/28/23 Unknown History mg/5 mL oral solution nitrofurantoin 100 mg PO Q12H 7 days #14 caps 12/03/23 Unknown Rx monohydrate/macrocrystals 100 mg capsule (Macrobid) Allergy/AdvReac Type Severity Reaction Status Date / Time No Known Allergies Allergy Verified 12/03/23 14:02 Surgical History Presence of coronary angioplasty implant and graft Social History household members: none housing: halfway Smoking Status: Current every day smoker tobacco type: cigarettes and pipe substance use type: does not use ROS ROS ED Review of Systems ROS Unobtainable: due to mental status EXAM Physical Exam Const Vital Signs: 02/15/24 20:58 Temperature 97.4 F L Temperature Source Oral Pulse Rate 70 Respiratory Rate 16 Blood Pressure 114/54 L Blood Pressure Mean 74 Pulse Ox 98 Oxygen Delivery Method Room Air Positive well nourished, well developed and unkempt General Appearance ED: unkempt, well developed and NAD; Negative for pallor HEENT Reports moist mucous membranes HEENT Narrative: Head is atraumatic no cephalic. Ears normal. Nares patent. Posterior pharynx is normal. Eyes PERRL and EOMs intact bilaterally General Eye ED: Negative for pale conjunctiva or scleral icterus Chest Wall inspection of chest normal and palpation of chest normal Resp normal respiratory effort and clear to auscultation bilaterally Cardio regular rate, regular rhythm, S1 normal heart sound, S2 normal heart sound and no murmurs GI normal to inspection, nondistended, normoactive bowel sounds, non-tender, non- distended and no masses; Negative for hepatosplenomegaly Back/Spine no CVA tenderness Extremity normal to inspection General Extremety ED: Negative for edema or tenderness General Extremity: Negative for edema Neuro No oriented x3, CN's II-XII intact bilaterally and no sensory deficits noted Neuro Narrative: Patient is awake. He moves all extremities. Negative Babinski sign. No clonus at the ankles. Sensorium / Orientation: Negative for alert Psych Appearance: unkempt Skin no rashes or lesions noted and no wounds General Skin Exam: Negative for jaundice or pallor MDM MDM MDM Narrative Medical decision making narrative: This may represent sundowning, need to evaluate for metabolic or infectious cause. Since she has had prior UTIs due to chronic indwelling Olvera will obtain UA, CBC and electrolyte panel. Since he is not tachypneic, febrile or hypoxic and there were no abnormal oscillatory findings on lung exam chest x-ray was not obtained. Lab Data Attestation: I reviewed the patient's lab results. Lab results narrative: White count is elevated 17.5 thousand with shift. There is no bandemia. Basic metabolic panel reveals a creatinine of 1.36. There are no prior electrolytes to compare. Urine is consistent with infection with 50-100 RBCs, 50-100 WBCs and 4+ bacteria. Labs: Laboratory Results - last 24 hr 02/15/24 02/15/24 21:45 21:50 WBC 17.5 H RBC 4.00 L Hgb 12.0 L Hct 37.0 L MCV 92.5 MCH 30.0 MCHC 32.4 RDW Std Deviation 45.9 H RDW Coeff of [place] 13.4 Plt Count 175 MPV 11.9 Immature Gran % (Auto) 0.500 Neut % (Auto) 83.5 H Lymph % (Auto) 7.2 L [place] % (Auto) 8.3 Eos % (Auto) 0.3 Baso % (Auto) 0.2 Absolute Neuts (auto) 14.6 H Absolute Lymphs (auto) 1.25 Nucleated RBC % 0 Sodium 141 Potassium 3.7 Chloride 108 H Carbon Dioxide 27.0 Anion Gap 6 BUN 17 Creatinine 1.36 H Est GFR (MDRD) Af Amer 65 Est GFR (MDRD) Non-Af 54 L BUN/Creatinine Ratio 12.5 Glucose 195 H Calcium 8.8 Urine Color Yellow Urine Clarity Cloudy Urine pH 8.0 Ur Specific [place] 1.010 Urine Protein 100 H Urine Glucose (UA) Normal Urine Ketones 5 H Urine Occult Blood 250 H Urine Nitrite Negative Urine Bilirubin Negative Urine Urobilinogen Normal Ur Leukocyte Esterase 500 H Urine RBC 50-100 SEEN Urine WBC 50-100 SEEN Ur Squamous Epith Cells 0-5 SEEN Amorphous Sediment 2+ Urine Bacteria 4+ Urine Mucus 0 SEEN POC Glucose 192 H Discharge Plan Triage Chief Complaint: Complaint ED Provider: Stephen Choe Dx/Rx/DC Orders Clinical Impression: Complicated urinary tract infection, Leukocytosis, Elevated serum creatinine, Acute alteration in mental status, History of dementia, History of hypertension Prescriptions: No Action atorvastatin 80 mg tablet 80 mg PO QHS clopidogrel 75 mg tablet 75 mg PO DAILY lisinopril 20 mg tablet 20 mg PO DAILY metoprolol succinate 100 mg tablet extended release 24 hr 100 mg PO DAILY multivitamin [Daily Multi-Vitamin] Tablet 1 tab PO DAILY nifedipine 60 mg tablet extended release 60 mg PO DAILY tamsulosin 0.4 mg capsule 0.4 mg PO QHS thiamine HCl (vitamin B1) 100 mg tablet 100 mg PO DAILY acetaminophen 325 mg tablet 975 mg PO Q8H PRN (Reason: MILD PAIN ) sulfamethoxazole-trimethoprim [Bactrim DS] 800-160 mg tablet 1 tab PO Q12H Rx Instructions: TAKE ONE TABLET BY MOUTH EVERY 12 HOURS FOR 7 DAYS. START DATE: 09/25/2023 END DATE: 10/02/2023 bisacodyl 10 mg suppository 10 mg SD Q24H PRN (Reason: CONSTIPATION ) mineral oil Enema 118 ml SD Q24H PRN (Reason: CONSTIPATION ) hydrocortisone 2.5 % cream 1 applic topical DAILY PRN (Reason: HEMORRHOIDS ) Rx Instructions: APPLY ONE APPLICATION TOPICALLY TO RECTUM NEEDED FOR HEMORRHOIDS. hydrocortisone 2.5 % cream with perineal applicator 1 applic topical BID Rx Instructions: APPLY ONE APPLICATION TWICE DAILY TO RECTUM FOR HEMORRHOIDS. loperamide 2 mg capsule 2 mg PO Q4H PRN (Reason: DIARRHEA ) Rx Instructions: administer after each loose stool until symptoms controlled; do not exceed 8 mg per 24 hrs magnesium hydroxide [Milk of Magnesia] 400 mg/5 mL suspension 30 ml PO Q24H PRN (Reason: CONSTIPATION ) polyethylene glycol 3350 17 gram/dose powder 17 g PO Q12H PRN (Reason: CONSTIPATION ) olanzapine 5 mg tablet,disintegrating 2.5 mg PO QHS valproic acid (as sodium salt) 250 mg/5 mL solution 125 mg PO TID nitrofurantoin monohyd/m-cryst [nitrofurantoin monohyd/m-cryst] 100 mg capsule 100 mg PO Q12 Qty: 14 0RF nitrofurantoin monohyd/m-cryst [Macrobid] 100 mg capsule 100 mg PO Q12H 7 Days Qty: 14 0RF Rx Instructions: must administer with a meal/food Primary Care Provider: Ramy Jay Referrals: Ramy Jay MD [Primary Care Provider] - Print Language: Telugu Disposition Disposition: Acute Care [facility]
[2024-02-15 21:56] LABS: Mucous, Urine 0 SEEN /hpf (<or=2+)
[2024-02-15 21:57] LABS: Absolute Lymphocyte Count 1.25 X10^3/uL (0.83-4.51); Absolute Neutrophil Count 14.6 X10^3/uL (2.0-7.7); Basophil# 0.03 X10^3/uL; Basophil% 0.2 % (0-1); Eosinophil# 0.05 X10^3/uL; Eosinophils% 0.3 % (0-5); Lymphocyte # 1.25 X10^3/ul (0.83-4.51); Lymphocyte % 7.2 % (19-41); Mean Corp Hgb Conc 32.4 g/dL (32-36); Mean Corpuscular Volume 92.5 fL (80-94); Mean Platelet Vol. 11.9 fl (6.2-12.0); Monocyte# 1.45 X10^3/uL; Monocyte% 8.3 % (0-10); NRBC Flagged by Analyzer 0 % (0-5); Neutrophil # 14.58 X10^3/uL (2.7-7.7); Neutrophil % 83.5 % (47-70); Platelet Count 175 K/mm3 (150-450); RBC Distribution Width CV 13.4 % (11.6-14.6); RBC Distribution Width SD 45.9 fl (35.1-43.9); White Blood Count 17.5 K/mm3 (4.4-11.0)
[2024-02-15 21:58] LABS: Color, Urine Yellow (Yellow); Glucose, Dipstick Normal (Normal); Ketone-Dipstick 5 mg/dl (Negative); Leukocyte Esterase-Dipstick 500 /ul (Negative); Nitrite-Dipstick Negative (Negative); Occult Blood-Urine 250 /ul (Negative); Protein-Dipstick 100 mg/dl (Negative); Urine Bilirubin Dipstick Negative (Negative); Urine Clarity Cloudy (Clear); Urine Urobilinogen Normal (Normal)
[2024-02-15 22:01] VITALS: BP 138/89; PULSE 85; RESP 19; TEMP 36.7; O2SAT 98
[2024-02-15 22:02] LABS: Bedside Glucose 192 mg/dL (74-106)
[2024-02-15 22:13] LABS: Bacteria 4+ /hpf (None Seen)
[2024-02-15 22:14] LABS: White Blood Cells 50-100 SEEN /hpf (0-5)
[2024-02-15 22:17] LABS: Anion Gap 6 (5-15); BUN 17 mg/dL (7-18); BUN/Creat Ratio 12.5 RATIO (10-20); Calcium,Total 8.8 mg/dL (8.5-10.1); Chloride 108 mmol/L (98-107); Creatinine, Serum 1.36 mg/dL (0.70-1.30); EST Glomerular Filtration Rate 54 mL/min (>60); Est Glom Filt Rate - Afr Amer 65 mL/min (>60); Glucose 195 mg/dL (74-106); Potassium 3.7 mmol/L (3.5-5.1); Sodium Level 141 mmol/L (136-145)
[2024-02-15 22:18] LABS: Amorphous Sediment 2+; Red Blood Cells-Urine 50-100 SEEN /hpf (0-5); Squamous Epithelial Cells - UA 0-5 SEEN /hpf (0-5)
--- NOTE | 2024-02-15 22:39 | HP.PCM.HOS_ITS ---
[facility] - General General Date of Admission: 02/15/24 Date of Service: 02/15/24 Chief Complaint: Lethargic and Confused with Dark Urine. HPI Narrative ELSI LUO, is a 78 M with a past medical history of essential hypertension, hyperlipidemia, history of tobacco abuse, CAD; s/p implant and graft, chronic dementia, remote history of EtOH abuse, history of psychotic disorder with delusions, depression with anxiety, history of UTI, history of BPH, history of neurogenic bladder; with chronic Olvera and OA who presents to [facility] ER after the staff at his ECF noted he was becoming lethargic and confused. Mr. Luo is not a reliable historian at this time so information was gathered from chart, medical staff and computer. According to the records he was was becoming increasingly lethargic, confused and combative so EMS was activated to bring him in for further evaluation and treatment. He was also noted to have dark and foul-smelling urine but there was no report of fever, chills, flank pain, back pain, chest pain, nausea or vomiting. In the ER he was noted to have a UA grossly positive for Acute Cystitis; with microscopic hematuria with a corresponding Leukocytosis of 17.5K present on admission due to chronic Olvera complicated by clinical evidence of Acute Metabolic Encephalopathy in the setting of Chronic Dementia and Hypophosphatemia of 1.6 mg/dL present on admission he was then admitted to the general medical floor for ongoing care for a stay that is expected to extend beyond 2 midnights. FORMERLY [facility], 1928–1983 Medical History (Updated 02/16/24 @ 00:[address] Gerber Alcantara, DO) Atherosclerotic heart disease of [place] coronary artery without angina pectoris Hyperlipemia HTN (hypertension) Neuromuscular dysfunction of bladder, unspecified BPH (benign prostatic hyperplasia) Complication of urinary stent Alcohol abuse Psychotic disorder with delusions Dementia Home Medications ?Medication ?Instructions ?Recorded ?Last Taken ?Type atorvastatin 80 mg tablet 80 mg PO QHS CHOLESTEROL 05/26/23 Unknown History clopidogrel 75 mg tablet 75 mg PO DAILY BLOOD THINNER 05/26/23 Unknown History lisinopril 20 mg tablet 20 mg PO DAILY BLOOD PRESSURE 05/26/23 Unknown History metoprolol succinate 100 mg 100 mg PO DAILY BLOOD PRESSURE 05/26/23 Unknown History tablet,extended release 24 hr multivitamin (Daily Multi-Vitamin 1 tab PO DAILY HEALTH MAINTENANCE 05/26/23 Unknown History tablet) nifedipine 60 mg tablet,extended 60 mg PO DAILY BLOOD PRESSURE 05/26/23 Unknown History release tamsulosin 0.4 mg capsule 0.4 mg PO QHS BPH 05/26/23 Unknown History thiamine HCl (vitamin B1) 100 mg 100 mg PO DAILY SUPPLEMENT 05/26/23 Unknown History tablet acetaminophen 325 mg tablet 975 mg PO Q8H PRN MILD PAIN 09/28/23 Unknown History bisacodyl 10 mg rectal suppository 10 mg FL Q24H PRN CONSTIPATION 09/28/23 Unknown History hydrocortisone 2.5 % topical cream 1 applic topical BID HEMORRHOIDS 09/28/23 Unknown History with perineal applicator loperamide 2 mg capsule 2 mg PO Q4H PRN DIARRHEA 09/28/23 Unknown History magnesium hydroxide 400 mg/5 mL 30 ml PO Q24H PRN CONSTIPATION 09/28/23 Unknown History oral suspension (Milk of Magnesia) mineral oil 118 ml FL Q24H PRN CONSTIPATION 09/28/23 Unknown History polyethylene glycol 3350 17 17 g PO Q12H PRN CONSTIPATION 09/28/23 Unknown History gram/dose oral powder valproic acid (as sodium salt) 250 125 mg PO TID MOOD 09/28/23 Unknown History mg/5 mL oral solution lorazepam 0.5 mg tablet (Ativan) 0.5 mg PO DAILY agitation 02/15/24 Unknown History lorazepam 0.5 mg tablet (Ativan) 0.5 mg PO Q6H PRN anxiety 02/15/24 Unknown History lorazepam 0.5 mg tablet (Ativan) 0.5 mg PO QHS agitation 02/15/24 Unknown History oxycodone 5 mg tablet 5 mg PO Q6H PRN pain 02/15/24 Unknown History quetiapine 50 mg tablet (Seroquel) 50 mg PO BID dementia 02/15/24 Unknown History sertraline 50 mg tablet 50 mg PO DAILY mood 02/15/24 Unknown History Allergy/AdvReac Type Severity Reaction Status Date / Time No Known Allergies Allergy Verified 12/03/23 14:02 Surgical History Presence of coronary angioplasty implant and graft Social History household members: none housing: residential Smoking Status: Current every day smoker tobacco type: cigarettes and pipe substance use type: does not use ROS ROS Narrative ROS was not possible in this chronically demented patient with superimposed acute metabolic encephalopathy. Vital Signs Vital Signs Vital Signs: 02/15/24 20:58 Temperature 97.4 F L Temperature Source Oral Pulse Rate 70 Respiratory Rate 16 Blood Pressure 114/54 L Blood Pressure Mean 74 Pulse Ox 98 Oxygen Delivery Method Room Air Physical Exam Const alert and no apparent distress General Appearance: cooperative Orientation / Consciousness: confused HEENT normocephalic, head/scalp atraumatic, hearing grossly normal bilaterally and moist oral mucous membranes Eyes PERRL and EOMs intact bilaterally Neck no lymphadenopathy and supple Resp normal respiratory effort, no retractions, no use of accessory muscles and clear to auscultation bilaterally Cardio regular rate and regular rhythm GI normal to inspection, nondistended, normoactive bowel sounds, soft to palpation, non-tender and non-distended Extremity normal to inspection, full ROM and no clubbing, cyanosis or edema Skin Skin Narrative: Patient has no evidence of rash, abscess or jaundice. Neuro CN's II-XII intact bilaterally, moves all extremities and no focal motor deficits Sensorium / Orientation: awake, alert and oriented to person Speech: speech normal Psych affect normal Results Medical Records Data Attestation: I reviewed the patient's medical records Lab / Micro Data Attestation: I reviewed the patient's lab results. 02/16/24 03:50 02/16/24 03:50 Labs: Laboratory Results - last 24 hr 02/15/24 21:45: POC Glucose 192 H 02/15/24 21:50: WBC 17.5 H, RBC 4.00 L, Hgb 12.0 L, Hct 37.0 L, MCV 92.5, MCH 30.0, MCHC 32.4, RDW Std Deviation 45.9 H, RDW Coeff of Asael 13.4, Plt Count 175, MPV 11.9, Immature Gran % (Auto) 0.500, Neut % (Auto) 83.5 H, Lymph % (Auto) 7.2 L, [place] % (Auto) 8.3, Eos % (Auto) 0.3, Baso % (Auto) 0.2, Absolute Neuts (auto) 14.6 H, Absolute Lymphs (auto) 1.25, Nucleated RBC % 0, Sodium 141, Potassium 3.7, Chloride 108 H, Carbon Dioxide 27.0, Anion Gap 6, BUN 17, Creatinine 1.36 H , Est GFR (MDRD) Af Amer 65, Est GFR (MDRD) Non-Af 54 L, BUN/Creatinine Ratio 12.5, Glucose 195 H, Calcium 8.8, Urine Color Yellow, Urine Clarity Cloudy, Urine pH 8.0, Ur Specific [place] 1.010, Urine Protein 100 H, Urine Glucose (UA) Normal, Urine Ketones 5 H, Urine Occult Blood 250 H, Urine Nitrite Negative, Urine Bilirubin Negative, Urine Urobilinogen Normal, Ur Leukocyte Esterase 500 H , Urine RBC 50-100 SEEN, Urine WBC 50-100 SEEN, Ur Squamous Epith Cells 0-5 SEEN, Amorphous Sediment 2+, Urine Bacteria 4+, Urine Mucus 0 SEEN Assessment & Plan Assessment/Plan (1) Complicated urinary tract infection: (2) Neuromuscular dysfunction of bladder, unspecified: (3) Leukocytosis: QUALIFIERS: Leukocytosis type: unspecified Qualified Code(s): D 72.829 - Elevated white blood cell count, unspecified (4) Acute alteration in mental status: (5) History of dementia: (6) HTN (hypertension): QUALIFIERS: Hypertension type: unspecified Qualified Code(s): I10 - Essential (primary) hypertension (7) Hyperlipemia: QUALIFIERS: Hyperlipidemia type: unspecified Qualified Code(s): E 78.5 - Hyperlipidemia, unspecified PLAN: Plan 1. Acute Cystitis; with microscopic hematuria with a corresponding Leukocytosis of 17.5K present on admission due to Chronic Olvera placed for neurogenic bladder and BPH - Admit to general medical floor and change Olvera. Continue empiric IV Rocephin and await culture and sensitivity data. Give Tylenol prn pain or fever. 2. Acute Metabolic Encephalopathy due to #1 in the setting of Chronic Dementia with a known history of psychotic disorder with delusions on frequent daily doses of Ativan chronically - Continue home regimen plus give prn IM Vistaril for breakthrough agitation / combative behavior. 3. Hypophosphatemia of 1.6 mg/dL present on admission compounding #1 & #2 - Give supplemental phosphorus and recheck level in the AM to confirm correction. 4. Essential hypertension - Hold scheduled antihypertensive until infection outline in #1 has been neutralized. 5. Hyperlipidemia - Resume statin. 6. History of tobacco abuse - Noted. 7. CAD; s/p implant and graft - Continue BASA and Plavix as previous. 8. Remote history of EtOH abuse - Noted. 9. History of depression with anxiety - Resume home regimen as before. 10. OA - Give Tylenol prn. 11. DVT prophylaxis - Lovenox 40 mg sq daily plus SCD's. Total time: Approximately 55 minutes. Charges/Coding Visit Charges Inpatient E&M: 95472 Init Hosp L2
[2024-02-15 22:49] LABS: Lactic Acid 1.9 mmol/L (0.4-1.9)
[2024-02-15] MEDS: LORazepam 2 MG/ML Syringe 0.5 MG IV (22:50)
--- NOTE | 2024-02-15 22:51 | ED.RN ---
Addendum entered by Iza Álvarez 02/15/24 23:54: This RN noticed the patient was off the monitor and I went in to place him back on the monitor when he was standing up, holding onto the bed rails trying to keep himself from falling. This RN held him up and called out for help, lowered the bed rail, and got him back in bed. The patient said you pushed me, thats why I was falling! this RN stated no, you were falling Ross. Ross kept attempting to leave and we had to manually put him back in bed. Ross was screaming I am going to report all of you! You people don't fucking quit do you! and kept trying to get up. This RN asked Dr Choe for some meds to help calm him down because he was becoming so escalated. Ross was attempting to bite me and was using his cardiac leads as a whip to try and hit myself and other staff. Ativan was given, see MAR. Original Note: pt becoming hostile, this RN requested ativan. Pt trying to leave, getting agitated. screaming you people don't fucking quit do you
[2024-02-15 23:00] VITALS: BP 120/56; PULSE 94; RESP 23; TEMP 37; O2SAT 100
[2024-02-15] MEDS: Ceftriaxone 1 GM/50 ML BAG IV (23:10)
--- NOTE | 2024-02-15 23:13 | ED.RN ---
Pt attempting to bite nurse and staff.
--- NOTE | 2024-02-15 23:15 | ED.RN ---
Gerber Martinez was called and consent to treat was given via phone call.
[2024-02-15 23:26] VITALS: BMI 25.5
[2024-02-15] MEDS: dexAMETHasone 10 MG/ML Vial IV (23:39)
--- NOTE | 2024-02-15 23:54 | ED.RN ---
This RN called sharon to give report that the pt was being admitted.
[2024-02-16] VITALS: BP 113/56; PULSE 71; RESP 18; TEMP 36.8; O2SAT 98
[2024-02-16 00:53] VITALS: BP 129/75; PULSE 74; RESP 22; TEMP 36.8; O2SAT 99
[2024-02-16] MEDS: 0.9% Normal Saline (1000mL) 1,000 ML 70 ML IV ×2 (01:18→21:18)
[2024-02-16] MEDS: Acetaminophen 325 MG Tablet 650 MG PO (01:40)
[2024-02-16] MEDS: QUEtiapine 25 MG Tablet 50 MG PO ×2 (01:41→21:20)
[2024-02-16 04:03] LABS: Absolute Lymphocyte Count 0.74 X10^3/uL (0.83-4.51); Absolute Neutrophil Count 12.8 X10^3/uL (2.0-7.7); Basophil# 0.02 X10^3/uL; Basophil% 0.1 % (0-1); Hematocrit 34.8 % (40-54); Hemoglobin 11.4 g/dL (13.0-16.5); Lymphocyte # 0.74 X10^3/ul (0.83-4.51); Lymphocyte % 5.4 % (19-41); Mean Corp Hgb Conc 32.8 g/dL (32-36); Mean Corpuscular Hgb 29.8 pg (27.0-32.0); Mean Corpuscular Volume 91.1 fL (80-94); Mean Platelet Vol. 11.7 fl (6.2-12.0); Monocyte# 0.18 X10^3/uL; Monocyte% 1.3 % (0-10); NRBC Flagged by Analyzer 0 % (0-5); Neutrophil # 12.81 X10^3/uL (2.7-7.7); Neutrophil % 92.8 % (47-70); Platelet Count 166 K/mm3 (150-450); RBC Distribution Width CV 13.4 % (11.6-14.6); RBC Distribution Width SD 45.1 fl (35.1-43.9); Red Blood Count 3.82 M/mm3 (4.6-6.2); White Blood Count 13.8 K/mm3 (4.4-11.0)
[2024-02-16 04:22] LABS: Valproic Acid (Depakene) Level 22 ug/mL (50-100)
[2024-02-16 04:30] LABS: ALB/GLOB Ratio 0.6 RATIO (0.9-2.4); AST(SGOT) 21 U/L (15-37); Alanine Aminotransfer ALT/SGPT 13 U/L (16-61); Albumin, Serum 2.7 g/dL (3.2-5.0); Alkaline Phosphatase 87 U/L (45-117); Anion Gap 8 (5-15); BUN 16 mg/dL (7-18); BUN/Creat Ratio 13.7 RATIO (10-20); Calcium,Total 8.6 mg/dL (8.5-10.1); Chloride 109 mmol/L (98-107); Creatinine, Serum 1.17 mg/dL (0.70-1.30); EST Glomerular Filtration Rate 64 mL/min (>60); Est Glom Filt Rate - Afr Amer 77 mL/min (>60); Estimated Creatinine Clearance 46.96 ml/min; Globulin 4.6 g/dL (2.2-4.2); Glucose 213 mg/dL (74-106); Magnesium 1.9 mg/dL (1.6-2.6); Phosphorus 1.6 mg/dL (2.5-4.9); Potassium 3.7 mmol/L (3.5-5.1); Protein, Total 7.3 g/dL (6.4-8.2); Sodium Level 139 mmol/L (136-145)
[2024-02-16 06:01] VITALS: BP 136/62; PULSE 74; RESP 18; TEMP 36.8; O2SAT 96
[2024-02-16] MEDS: Potassium Phosphate 40 MM in 0.9% Normal Saline (500mL Bag) 500 ML 62.5 MM IV (06:03)
[2024-02-16] MEDS: Valproic Acid 250 MG/5 ML UDC 125 MG PO ×3 (06:53→21:19)
[2024-02-16 09:58] VITALS: BP 139/77; PULSE 86; RESP 16; TEMP 36.6; O2SAT 98
--- NOTE | 2024-02-16 10:38 | CASEMGMT ---
Social Work Pt has an appointed legal guardian Gerber Martinez. Letter of Guardianship printed from EMR and placed on pt's chart. SVETLANA Arce
--- NOTE | 2024-02-16 10:47 | CASEMGMT ---
Addendum entered by Janki Barrow 02/16/24 11:50: Social Work Return call from Guardian Gerber Martinez who confirms pt will return to [facility] at time of dc. Plan: Return to [facility], when medically ready SVETLANA Arce Original Note: Social Work Pt is admitted from [facility] at [facility]. Pt has a legal guardian Gerber Martinez. Phone call to Gerber to discuss discharge plan and confirm return to [facility]. Message left for Gerber requesting return call. DC mail handler assistant to sent updates to [facility]. Plan: Return to [facility], when medically ready SVETLANA Arce
[2024-02-16 11:00] VITALS: O2SAT 97
--- NOTE | 2024-02-16 11:23 | CASEMGMT ---
Addendum entered by Radha Munguia 02/16/24 12:46: Patient can return under his [facility] benefits. SW updated. Radha Munguia DC Planning Asst. Original Note: Discharge Planning Updates sent to [facility]. Asked for confirmation that patient will return under his [facility] benefits. Awaiting response. Radha Munguia DC Planning Asst.
[2024-02-16 14:19] LABS: Phosphorus 4.5 mg/dL (2.5-4.9)
--- NOTE | 2024-02-16 17:32 | PN.HOSP_ITS ---
Reason for Visit Reason for Visit: Diagnoses Elevated white blood cell count, unspecified (02/15/24) Hyperlipidemia, unspecified (02/15/24) Essential (primary) hypertension (02/15/24) Neuromuscular dysfunction of bladder, unspecified (02/15/24) Urinary tract infection, site not specified (02/15/24) Altered mental status, unspecified (02/15/24) Personal history of other mental and behavioral disorders (02/15/24) Subjective Subjective Patient was seen and examined today, he remains confused and refusing many of his medications according to nursing. Patient's white blood cell count today was 13.8. Objective Data Objective Data Vital Signs: Vital Signs Temp Pulse Resp BP Pulse Ox O2 Del Method 97.9 F 86 16 139/77 H 97 Room Air 02/16/24 09:58 02/16/24 09:58 02/16/24 09:58 02/16/24 09:58 02/16/24 11:00 02/16/24 11:00 Oxygen Delivery Method Room Air Weight: 71.9 kg Body Mass Index (BMI) 25.5 Intake & Output: Intake and Output for Last 24 Hours 02/14/24 02/15/24 02/16/24 23:59 23:59 23:59 Intake Total 50 / 50 Balance 50 / 50 Lab / Micro Data 02/16/24 03:50 02/16/24 03:50 Labs: Laboratory Results - last 24 hr 02/15/24 21:45: POC Glucose 192 H 02/15/24 21:50: WBC 17.5 H, RBC 4.00 L, Hgb 12.0 L, Hct 37.0 L, MCV 92.5, MCH 30.0, MCHC 32.4, RDW Std Deviation 45.9 H, RDW Coeff of Asael 13.4, Plt Count 175, MPV 11.9, Immature Gran % (Auto) 0.500, Neut % (Auto) 83.5 H, Lymph % (Auto) 7.2 L, [place] % (Auto) 8.3, Eos % (Auto) 0.3, Baso % (Auto) 0.2, Absolute Neuts (auto) 14.6 H, Absolute Lymphs (auto) 1.25, Nucleated RBC % 0, Sodium 141, Potassium 3.7, Chloride 108 H, Carbon Dioxide 27.0, Anion Gap 6, BUN 17, Creatinine 1.36 H , Est GFR (MDRD) Af Amer 65, Est GFR (MDRD) Non-Af 54 L, BUN/Creatinine Ratio 12.5, Glucose 195 H, Calcium 8.8, Urine Color Yellow, Urine Clarity Cloudy, Urine pH 8.0, Ur Specific [place] 1.010, Urine Protein 100 H, Urine Glucose (UA) Normal, Urine Ketones 5 H, Urine Occult Blood 250 H, Urine Nitrite Negative, Urine Bilirubin Negative, Urine Urobilinogen Normal, Ur Leukocyte Esterase 500 H , Urine RBC 50-100 SEEN, Urine WBC 50-100 SEEN, Ur Squamous Epith Cells 0-5 SEEN, Amorphous Sediment 2+, Urine Bacteria 4+, Urine Mucus 0 SEEN 02/15/24 22:20: Lactic Acid 1.9 02/16/24 03:50: WBC 13.8 H, RBC 3.82 L, Hgb 11.4 L, Hct 34.8 L, MCV 91.1, MCH 29.8, MCHC 32.8, RDW Std Deviation 45.1 H, RDW Coeff of [place] 13.4, Plt Count 166, MPV 11.7, Immature Gran % (Auto) 0.400, Neut % (Auto) 92.8 H, Lymph % (Auto) 5.4 L, [place] % (Auto) 1.3, Eos % (Auto) 0.0, Baso % (Auto) 0.1, Absolute Neuts (auto) 12.8 H, Absolute Lymphs (auto) 0.74 L, Nucleated RBC % 0, Sodium 139, Potassium 3.7, Chloride 109 H, Carbon Dioxide 22.0, Anion Gap 8, BUN 16, Creatinine 1.17, Estim Creat Clear Calc 46.96, Est GFR (MDRD) Af Amer 77, Est GFR (MDRD) Non-Af 64, BUN/Creatinine Ratio 13.7, Glucose 213 H, Calcium 8.6, Phosphorus 1.6 L, Magnesium 1.9, Total Bilirubin 0.40, AST 21, ALT 13 L, Alkaline Phosphatase 87, Total Protein 7.3, Albumin 2.7 L, Globulin 4.6 H, Albumin/Globulin Ratio 0.6 L, TSH 0.670, Valproic Acid 22 L 02/16/24 13:38: Phosphorus 4.5 Micro: Microbiology 02/15/24 21:50 Urine, Random Urine Culture - Preliminary Gram negative hiram Physical Exam Const alert and no apparent distress Constitutional Narrative: Patient appears older than his stated age, he is confused but he does not appear agitated at the time my examination General Appearance: cooperative and well developed Orientation / Consciousness: awake HEENT normocephalic, head/scalp atraumatic and moist oral mucous membranes Eyes PERRL, EOMs intact bilaterally and conjunctivae normal Neck supple, no JVD and thyroid normal General: trachea midline Resp normal respiratory effort, no retractions, no use of accessory muscles and clear to auscultation bilaterally Auscultation: Negative for rales, rhonchi or wheezes Cardio regular rate, regular rhythm, S1 normal heart sound, S2 normal heart sound, no murmurs, no rub and no gallops GI normal to inspection, nondistended, normoactive bowel sounds, soft to palpation, non-tender and non-distended Extremity no clubbing, cyanosis or edema Skin no rashes or lesions noted General Skin Exam: no breakdown Neuro CN's II-XII intact bilaterally, moves all extremities, no focal motor deficits and no sensory deficits noted Neuro Narrative: Patient is confused Sensorium / Orientation: awake and alert Psych Psych Narrative: Patient is confused Assessment & Plan Assessment/Plan (1) Complicated urinary tract infection: PLAN: Plan 1. Acute cystitis related to chronic indwelling Olvera catheter usage-urine culture grew out a gram-negative hiram, patient will remain on ceftriaxone for now, labs will be repeated tomorrow #2 dementia with behavioral disturbances-complicates care, management, recovery, and prognosis #3 essential hypertension-again patient has been refusing to take his medications, we will attempt to administer the medications tomorrow again. #4 hyperlipidemia-patient is on atorvastatin, again there may be problems with him taking the medication due to dementia. 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 Total clinical time spent by myself addressing the patient's medical issues, reviewing all of the data, and collaborating with patient's care team: 35 minutes Charges/Coding Visit Charges Inpatient E&M: 08363 Subs Hosp L2
[2024-02-16 21:16] VITALS: BP 149/80; PULSE 97; RESP 18; TEMP 36.9; O2SAT 98
[2024-02-16] MEDS: LORazepam 0.5 MG Tablet PO (21:19)
[2024-02-16] MEDS: Tamsulosin HCl 0.4 MG Capsule PO (21:20)
[2024-02-16] MEDS: Ceftriaxone 1 GM/50 ML BAG IV (21:20)
[2024-02-16] MEDS: Atorvastatin Calcium 80 MG Tablet PO (21:20)
[2024-02-17 05:24] VITALS: BMI 25.4
[2024-02-17 06:25] VITALS: BP 148/75; PULSE 69; RESP 18; TEMP 36.6; O2SAT 98
[2024-02-17] MEDS: Valproic Acid 250 MG/5 ML UDC 125 MG PO ×3 (06:27→21:57)
[2024-02-17 07:09] VITALS: O2SAT 95
[2024-02-17 09:06] VITALS: BP 158/74; PULSE 64; RESP 16; TEMP 36.6; O2SAT 96
[2024-02-17] MEDS: Clopidogrel Bisulfate 75 MG Tablet PO (09:11)
[2024-02-17] MEDS: Multivitamins,Therapeutic Tablet 1 TABLET PO (09:11)
[2024-02-17] MEDS: QUEtiapine 25 MG Tablet 50 MG PO ×2 (09:11→21:58)
[2024-02-17] MEDS: Thiamine Hydrochloride 100 MG Tablet PO (09:11)
[2024-02-17] MEDS: Sertraline 50 MG Tablet PO (09:12)
[2024-02-17] MEDS: LORazepam 0.5 MG Tablet PO ×2 (09:19→21:58)
[2024-02-17] MEDS: 0.9% Normal Saline (1000mL) 1,000 ML 70 ML IV (12:31)
[2024-02-17 14:50] VITALS: BP 164/69; PULSE 67; RESP 16; TEMP 37.1; O2SAT 100
--- NOTE | 2024-02-17 14:56 | PCM.PN.HOSP ---
Reason for Visit Reason for Visit: Diagnoses Elevated white blood cell count, unspecified (02/15/24) Hyperlipidemia, unspecified (02/15/24) Essential (primary) hypertension (02/15/24) Neuromuscular dysfunction of bladder, unspecified (02/15/24) Urinary tract infection, site not specified (02/15/24) Altered mental status, unspecified (02/15/24) Personal history of other mental and behavioral disorders (02/15/24) Subjective Subjective Patient was seen and examined today, he is alert but will only speak a few words. He is confused. Final urine culture with sensitivities is pending at this time Objective Data Objective Data Vital Signs: Vital Signs Temp Pulse Resp BP Pulse Ox O2 Del Method 98.8 F 67 16 164/69 H 100 Room Air 02/17/24 14:50 02/17/24 14:50 02/17/24 14:50 02/17/24 14:50 02/17/24 14:50 02/17/24 14:50 Oxygen Delivery Method Room Air Weight: 71.9 kg Body Mass Index (BMI) 25.4 Intake & Output: Intake and Output for Last 24 Hours 02/15/24 02/16/24 02/17/24 23:59 23:59 23:59 Intake Total 1563.3333 / 1663.3333 1200 / 1200 Output Total 300 / 800 1650 / 1650 Balance 1263.3333 / 863.3333 -450 / -450 Lab / Micro Data 02/16/24 03:50 02/16/24 03:50 Micro: Microbiology 02/15/24 21:50 Urine, Random Urine Culture - Preliminary Gram negative hiram Physical Exam Narrative alert and no apparent distress Constitutional Narrative: Patient appears older than his stated age, he is confused but he does not appear agitated at the time my examination General Appearance: cooperative and well developed Orientation / Consciousness: awake HEENT normocephalic, head/scalp atraumatic and moist oral mucous membranes Eyes PERRL, EOMs intact bilaterally and conjunctivae normal Neck supple, no JVD and thyroid normal General: trachea midline Resp normal respiratory effort, no retractions, no use of accessory muscles and clear to auscultation bilaterally Auscultation: Negative for rales, rhonchi or wheezes Cardio regular rate, regular rhythm, S1 normal heart sound, S2 normal heart sound, no murmurs, no rub and no gallops GI normal to inspection, nondistended, normoactive bowel sounds, soft to palpation, non-tender and non-distended Extremity no clubbing, cyanosis or edema Skin no rashes or lesions noted General Skin Exam: no breakdown Neuro CN's II-XII intact bilaterally, moves all extremities, no focal motor deficits and no sensory deficits noted Neuro Narrative: Patient is confused Sensorium / Orientation: awake and alert Psych Psych Narrative: Patient is confused Assessment & Plan Assessment/Plan (1) Complicated urinary tract infection: PLAN: Plan 1. Acute cystitis related to chronic indwelling Olvera catheter usage-urine culture grew out a gram-negative hiram, patient will remain on ceftriaxone for now, patient's white blood cell count today was improved #2 dementia with behavioral disturbances-complicates care, management, recovery, and prognosis #3 essential hypertension-again patient has been refusing to take his medications, we will attempt to administer the medications tomorrow again. #4 hyperlipidemia-patient is on atorvastatin, again there may be problems with him taking the medication due to dementia. 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 Total clinical time spent by myself addressing the patient's medical issues, reviewing all of the data, and collaborating with patient's care team: 35 minutes Charges/Coding Visit Charges Inpatient E&M: 94757 Subs Hosp L2
--- NOTE | 2024-02-17 16:43 | CASEMGMT ---
Social Work Pt can return to [facility] when medically ready. Green sheet on chart to facilitate weekend discharge. Plan: [facility], when medically ready SVETLANA Arce
[2024-02-17 21:50] VITALS: BP 159/72; PULSE 64; RESP 18; TEMP 36.6; O2SAT 100
[2024-02-17] MEDS: Ceftriaxone 1 GM/50 ML BAG IV (21:57)
[2024-02-17] MEDS: Atorvastatin Calcium 80 MG Tablet PO (21:58)
[2024-02-17] MEDS: Tamsulosin HCl 0.4 MG Capsule PO (21:58)
[2024-02-18] MEDS: 0.9% Normal Saline (1000mL) 1,000 ML 70 ML IV (03:50)
[2024-02-18 04:43] VITALS: BP 158/74; PULSE 83; RESP 18; TEMP 36.5; O2SAT 100
[2024-02-18] MEDS: Valproic Acid 250 MG/5 ML UDC 125 MG PO ×2 (04:51→14:24)
[2024-02-18 05:53] VITALS: BMI 25.4
[2024-02-18 07:06] VITALS: O2SAT 95
[2024-02-18 08:50] VITALS: BP 158/102; PULSE 114; RESP 18; TEMP 36.4; O2SAT 97
[2024-02-18 08:53] VITALS: PULSE 120
[2024-02-18] MEDS: QUEtiapine 25 MG Tablet 50 MG PO (08:57)
[2024-02-18] MEDS: Sertraline 50 MG Tablet PO (08:58)
[2024-02-18] MEDS: Clopidogrel Bisulfate 75 MG Tablet PO (08:58)
[2024-02-18] MEDS: Thiamine Hydrochloride 100 MG Tablet PO (08:58)
[2024-02-18] MEDS: Multivitamins,Therapeutic Tablet 1 TABLET PO (08:58)
[2024-02-18] MEDS: Enoxaparin 40 MG/0.4 ML Syringe SC (08:59)
[2024-02-18] MEDS: LORazepam 0.5 MG Tablet PO (09:02)
[2024-02-18 10:50] LABS: Absolute Lymphocyte Count 1.31 X10^3/uL (0.83-4.51); Absolute Neutrophil Count 5.7 X10^3/uL (2.0-7.7); Basophil# 0.03 X10^3/uL; Basophil% 0.4 % (0-1); Eosinophils% 1.3 % (0-5); Hematocrit 42.1 % (40-54); Lymphocyte # 1.31 X10^3/ul (0.83-4.51); Lymphocyte % 16.4 % (19-41); Mean Corp Hgb Conc 33.3 g/dL (32-36); Mean Corpuscular Volume 90.3 fL (80-94); Monocyte# 0.85 X10^3/uL; Monocyte% 10.7 % (0-10); NRBC Flagged by Analyzer 0 % (0-5); Neutrophil # 5.65 X10^3/uL (2.7-7.7); Neutrophil % 70.8 % (47-70); Platelet Count 186 K/mm3 (150-450); RBC Distribution Width CV 13.4 % (11.6-14.6); RBC Distribution Width SD 44.4 fl (35.1-43.9); Red Blood Count 4.66 M/mm3 (4.6-6.2)
[2024-02-18] MEDS: Hydrocortisone 2.5% Crm 1 APPLIC TOPICAL (10:53)
--- NOTE | 2024-02-18 12:13 | PCM.TXEXTCAR ---
Diet Diet Order/Speech Therapy: 02/16/24 00:45 Diet: Regular Food consistency:: Easy to Chew Liquid Consistency:: Regular/Thin Therapies Narrative: Resume previous activity level Problem/Diagnosis (1) Complicated urinary tract infection: Status: Acute Code(s): N39.0 - Urinary tract infection, site not specified Plan 1. Acute cystitis secondary to Proteus mirabilis related to chronic indwelling Olvera catheter usage-urine culture grew out a gram-negative hiram, patient will remain on ceftriaxone for now, patient's white blood cell count today was improved #2 dementia with behavioral disturbances-complicates care, management, recovery, and prognosis #3 essential hypertension-again patient has been refusing to take his medications, we will attempt to administer the medications tomorrow again. #4 hyperlipidemia-patient is on atorvastatin, again there may be problems with him taking the medication due to dementia. 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 Total clinical time spent by myself addressing the patient's medical issues, reviewing all of the data, and collaborating with patient's care team: 35 minutes Allergies/Procedures Done in Hospital Allergies milk Adverse Reaction (Intermediate, Verified 02/16/24 18:33) Diarrhea Procedures: None Type of Care/Length of Stay Estimated LOS: More Than 30 Days Type of Care Needed: Intermediate Rehab Potential: Good Prognosis: Good Additional Orders/Day of Discharge H&P will serve as current which was dated: 02/15/24 Day of Discharge: 02/18/24 Dietary and Speech Recommendations Dietitian Recommendations/Changes: Continue Cardiac diet to optimize oral intakes; adjusted to easy to chew d/t poor dentation. Continue 120mL ensure plus high protien 4x daily with medpass to provide supplemental energy. Discharge Plan Admission Admit Date/Time: 02/15/24 23:59 Primary Reason for Your Visit: Urinary tract infection, encephalopathy secondary to acute cystitis Attending Provider: Rhett Darling Primary Care Provider: Ramy Jay Consulting Providers: Gerber Alcantara Discharge Orders/Prescriptions Prescriptions: New lorazepam 0.5 mg Tablet 0.5 mg PO QHS Qty: 4 0RF lorazepam 0.5 mg Tablet 0.5 mg PO DAILY Qty: 4 0RF lorazepam 0.5 mg Tablet 0.5 mg PO Q6H PRN PRN (Reason: anxiety) Qty: 4 0RF Continued atorvastatin 80 mg tablet 80 mg PO QHS clopidogrel 75 mg tablet 75 mg PO DAILY lisinopril 20 mg tablet 20 mg PO DAILY metoprolol succinate 100 mg tablet extended release 24 hr 100 mg PO DAILY multivitamin [Daily Multi-Vitamin] Tablet 1 tab PO DAILY nifedipine 60 mg tablet extended release 60 mg PO DAILY tamsulosin 0.4 mg capsule 0.4 mg PO QHS thiamine HCl (vitamin B1) 100 mg tablet 100 mg PO DAILY acetaminophen 325 mg tablet 975 mg PO Q8H PRN (Reason: MILD PAIN ) bisacodyl 10 mg suppository 10 mg RI Q24H PRN (Reason: CONSTIPATION ) mineral oil Enema 118 ml RI Q24H PRN (Reason: CONSTIPATION ) hydrocortisone 2.5 % cream with perineal applicator 1 applic topical BID Rx Instructions: APPLY ONE APPLICATION TWICE DAILY TO RECTUM FOR HEMORRHOIDS. loperamide 2 mg capsule 2 mg PO Q4H PRN (Reason: DIARRHEA ) Rx Instructions: administer after each loose stool until symptoms controlled; do not exceed 8 mg per 24 hrs magnesium hydroxide [Milk of Magnesia] 400 mg/5 mL suspension 30 ml PO Q24H PRN (Reason: CONSTIPATION ) polyethylene glycol 3350 17 gram/dose powder 17 g PO Q12H PRN (Reason: CONSTIPATION ) valproic acid (as sodium salt) 250 mg/5 mL solution 125 mg PO TID lorazepam [Ativan] 0.5 mg tablet 0.5 mg PO Q6H PRN (Reason: anxiety) quetiapine [Seroquel] 50 mg tablet 50 mg PO BID sertraline 50 mg tablet 50 mg PO DAILY Discontinued lorazepam [Ativan] 0.5 mg tablet 0.5 mg PO QHS lorazepam [Ativan] 0.5 mg tablet 0.5 mg PO DAILY Patient Comments: every am oxycodone 5 mg tablet 5 mg PO Q6H PRN (Reason: pain) Referrals / Follow Up: Ramy Jay MD [Primary Care Provider] - Disposition Disposition (needs filled in before D/C Order can be placed): NonSkilled NH/Intermed Care
--- NOTE | 2024-02-18 12:20 | PCM.DC.SUM ---
Providers Date of Admission: 02/15/24 Date of Discharge: 02/18/24 Primary Care Physician: Dr. Ramy Jay MD Reason For Visit: UTI ACUTE METABOLIC ENCEPHALOPATHY AND CHRONIC Diagnosis Discharge Diagnosis (1) Complicated urinary tract infection: Status: Acute Code(s): N39.0 - Urinary tract infection, site not specified Plan 1. Acute cystitis secondary to Proteus mirabilis related to chronic indwelling Olvera catheter usage-urine culture grew out a gram-negative hiram, patient will remain on ceftriaxone for now, patient's white blood cell count today was improved #2 dementia with behavioral disturbances exacerbated by urinary tract infection-complicates care, management, recovery, and prognosis #3 essential hypertension-again patient has been refusing to take his medications, we will attempt to administer the medications tomorrow again. #4 hyperlipidemia-patient is on atorvastatin, again there may be problems with him taking the medication due to dementia. 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 Total clinical time spent by myself addressing the patient's medical issues, reviewing all of the data, and collaborating with patient's care team: 35 minutes Medications at Discharge Home Medications atorvastatin 80 mg tablet 80 mg PO QHS CHOLESTEROL 05/26/23 clopidogrel 75 mg tablet 75 mg PO DAILY BLOOD THINNER 05/26/23 lisinopril 20 mg tablet 20 mg PO DAILY BLOOD PRESSURE 05/26/23 metoprolol succinate 100 mg tablet,extended release 24 hr 100 mg PO DAILY BLOOD PRESSURE 05/26/23 multivitamin (Daily Multi-Vitamin tablet) 1 tab PO DAILY HEALTH MAINTENANCE 05/26/23 nifedipine 60 mg tablet,extended release 60 mg PO DAILY BLOOD PRESSURE 05/26/23 tamsulosin 0.4 mg capsule 0.4 mg PO QHS BPH 05/26/23 thiamine HCl (vitamin B1) 100 mg tablet 100 mg PO DAILY SUPPLEMENT 05/26/23 acetaminophen 325 mg tablet 975 mg PO Q8H PRN MILD PAIN 09/28/23 bisacodyl 10 mg rectal suppository 10 mg WV Q24H PRN CONSTIPATION 09/28/23 hydrocortisone 2.5 % topical cream with perineal applicator 1 applic topical BID HEMORRHOIDS 09/28/23 loperamide 2 mg capsule 2 mg PO Q4H PRN DIARRHEA 09/28/23 magnesium hydroxide 400 mg/5 mL oral suspension (Milk of Magnesia) 30 ml PO Q24H PRN CONSTIPATION 09/28/23 mineral oil 118 ml WV Q24H PRN CONSTIPATION 09/28/23 polyethylene glycol 3350 17 gram/dose oral powder 17 g PO Q12H PRN CONSTIPATION 09/28/23 valproic acid (as sodium salt) 250 mg/5 mL oral solution 125 mg PO TID MOOD 09/28/23 lorazepam 0.5 mg tablet (Ativan) 0.5 mg PO Q6H PRN anxiety 02/15/24 quetiapine 50 mg tablet (Seroquel) 50 mg PO BID dementia 02/15/24 sertraline 50 mg tablet 50 mg PO DAILY mood 02/15/24 lorazepam 0.5 mg tablet 0.5 mg PO DAILY #4 tabs 02/18/24 lorazepam 0.5 mg tablet 0.5 mg PO Q6H PRN PRN anxiety #4 tabs 02/18/24 lorazepam 0.5 mg tablet 0.5 mg PO QHS #4 tabs 02/18/24 Hospital Course Operations None Procedures None Summary of Care Provided Minutes Spent on Discharge: Hospital Course: This 76-year-old white male was seen in the emergency room at [facility] after being brought in from an intermediate care facility at which she was living due to inappropriate behavior and aggressive behavior. Patient does have a history of dementia and chronic Olvera catheter. Workup in the emergency room revealed an elevated white blood cell count at 17.4, creatinine was 1.36, urinalysis showed 50-100 WBCs and 5200 RBCs with plus for bacteria. Patient was admitted to [place] [address] for acute cystitis related to his chronic Olvera catheter and dementia with behavioral disturbances, he was given IV antibiotics and urine culture grew out Proteus mirabilis. His white count was monitored and declined during his hospitalization and he had no major behavior disturbances in the hospital. On 02/18/2024, patient was seen and examined:alert and no apparent distress Constitutional Narrative: Patient appears older than his stated age, he is confused but he does not appear agitated at the time my examination General Appearance: cooperative and well developed Orientation / Consciousness: awake HEENT normocephalic, head/scalp atraumatic and moist oral mucous membranes Eyes PERRL, EOMs intact bilaterally and conjunctivae normal Neck supple, no JVD and thyroid normal General: trachea midline Resp normal respiratory effort, no retractions, no use of accessory muscles and clear to auscultation bilaterally Auscultation: Negative for rales, rhonchi or wheezes Cardio regular rate, regular rhythm, S1 normal heart sound, S2 normal heart sound, no murmurs, no rub and no gallops GI normal to inspection, nondistended, normoactive bowel sounds, soft to palpation, non-tender and non-distended Extremity no clubbing, cyanosis or edema Skin no rashes or lesions noted General Skin Exam: no breakdown Neuro CN's II-XII intact bilaterally, moves all extremities, no focal motor deficits and no sensory deficits noted Neuro Narrative: Patient is confused Sensorium / Orientation: awake and alert Psych Psych Narrative: Patient is confused Patient was discharged back to his intermediate care facility on 02/18/2024 stable condition Weight / BMI Weight Weight: 71.9 kg Body Mass Index (BMI) 25.4 ABG / Lab / Microbiology Data 02/18/24 10:44 02/16/24 03:50 Laboratory: Laboratory Results - last 24 hr 02/18/24 10:44: WBC 8.0, RBC 4.66, Hgb 14.0, Hct 42.1, MCV 90.3, MCH 30.0, MCHC 33.3, RDW Std Deviation 44.4 H, RDW Coeff of Asael 13.4, Plt Count 186, MPV 11.0, Immature Gran % (Auto) 0.400, Neut % (Auto) 70.8 H, Lymph % (Auto) 16.4 L, [place] % (Auto) 10.7 H, Eos % (Auto) 1.3, Baso % (Auto) 0.4, Absolute Neuts (auto) 5.7, Absolute Lymphs (auto) 1.31, Nucleated RBC % 0 Microbiology: Microbiology 02/15/24 21:50 Urine, Random Urine Culture - Final Proteus mirabilis 02/15/24 22:20 Blood Culture (Wb) - Anticubital Right Blood Culture - Preliminary No growth in 48 hours. Meaningful Use Info Meaningful Use Meaningful Use Diagnoses (Choose all that apply): None applicable Ischemic Stroke Statin Dosing Therapy Reference: STATIN DOSE THERAPY REFERENCE: * Patients > 75 years receive moderate or high dose statin therapy. * Patients 75 years or YOUNGER should receive HIGH intensity statin dose unless contraindicated. You will be required to document reason for non-treatment if statin daily dose does not meet guidelines. HIGH DOSE STATIN THERAPY DAILY Atorvastatin > than or = to 40 mg Rosuvastatin > than or = to 20 mg Amlodipine + Atorvastatin > than or = to 2.5/40 mg Ezetimibe + Simvastatin 10/80 mg Simvastatin 80mg Discharge Plan Admission Admit Date/Time: 02/15/24 23:59 Primary Reason for Your Visit: Urinary tract infection, encephalopathy secondary to acute cystitis Attending Provider: Rhett Darling Primary Care Provider: Ramy Jay Consulting Providers: Gerber Alcantara Discharge Orders/Prescriptions Prescriptions: New lorazepam 0.5 mg Tablet 0.5 mg PO QHS Qty: 4 0RF lorazepam 0.5 mg Tablet 0.5 mg PO DAILY Qty: 4 0RF lorazepam 0.5 mg Tablet 0.5 mg PO Q6H PRN PRN (Reason: anxiety) Qty: 4 0RF Continued atorvastatin 80 mg tablet 80 mg PO QHS clopidogrel 75 mg tablet 75 mg PO DAILY lisinopril 20 mg tablet 20 mg PO DAILY metoprolol succinate 100 mg tablet extended release 24 hr 100 mg PO DAILY multivitamin [Daily Multi-Vitamin] Tablet 1 tab PO DAILY nifedipine 60 mg tablet extended release 60 mg PO DAILY tamsulosin 0.4 mg capsule 0.4 mg PO QHS thiamine HCl (vitamin B1) 100 mg tablet 100 mg PO DAILY acetaminophen 325 mg tablet 975 mg PO Q8H PRN (Reason: MILD PAIN ) bisacodyl 10 mg suppository 10 mg WV Q24H PRN (Reason: CONSTIPATION ) mineral oil Enema 118 ml WV Q24H PRN (Reason: CONSTIPATION ) hydrocortisone 2.5 % cream with perineal applicator 1 applic topical BID Rx Instructions: APPLY ONE APPLICATION TWICE DAILY TO RECTUM FOR HEMORRHOIDS. loperamide 2 mg capsule 2 mg PO Q4H PRN (Reason: DIARRHEA ) Rx Instructions: administer after each loose stool until symptoms controlled; do not exceed 8 mg per 24 hrs magnesium hydroxide [Milk of Magnesia] 400 mg/5 mL suspension 30 ml PO Q24H PRN (Reason: CONSTIPATION ) polyethylene glycol 3350 17 gram/dose powder 17 g PO Q12H PRN (Reason: CONSTIPATION ) valproic acid (as sodium salt) 250 mg/5 mL solution 125 mg PO TID lorazepam [Ativan] 0.5 mg tablet 0.5 mg PO Q6H PRN (Reason: anxiety) quetiapine [Seroquel] 50 mg tablet 50 mg PO BID sertraline 50 mg tablet 50 mg PO DAILY Discontinued lorazepam [Ativan] 0.5 mg tablet 0.5 mg PO QHS lorazepam [Ativan] 0.5 mg tablet 0.5 mg PO DAILY Patient Comments: every am oxycodone 5 mg tablet 5 mg PO Q6H PRN (Reason: pain) Referrals / Follow Up: Ramy Jay MD [Primary Care Provider] - Disposition Disposition (needs filled in before D/C Order can be placed): NonSkilled NH/Intermed Care Charges/Coding Visit Charges Inpatient E&M: 47452 Disch Hosp >30min
[2024-02-18 17:06] VITALS: PULSE 116; RESP 20; TEMP 36.8; O2SAT 98
== END 2024-02-18 17:27 | DRG 699 ==
LOC: ED 22:57 → MS3 23:25
PROVIDERS: Admitting Provider Internal Medicine; Emergency Provider Emergency Medicine; PCP Family Medicine; Visit Provider Internal Medicine
DX: T83.511A Infection and inflammatory reaction due to indwelling urethral catheter, initial encounter (principal); F03.918 Unspecified dementia, unspecified severity, with other behavioral disturbance; N30.01 Acute cystitis with hematuria; I10 Essential (primary) hypertension; E78.5 Hyperlipidemia, unspecified; I25.10 Atherosclerotic heart disease of native coronary artery without angina pectoris; N31.2 Flaccid neuropathic bladder, not elsewhere classified; Z95.5 Presence of coronary angioplasty implant and graft; Z87.891 Personal history of nicotine dependence; Z79.02 Long term (current) use of antithrombotics/antiplatelets; R79.89 Other specified abnormal findings of blood chemistry; B96.4 Proteus (mirabilis) (morganii) as the cause of diseases classified elsewhere; Y84.9 Medical procedure, unspecified as the cause of abnormal reaction of the patient, or of later complication, without mention of misadventure at the time of the procedure; Z86.59 Personal history of other mental and behavioral disorders; N40.0 Benign prostatic hyperplasia without lower urinary tract symptoms; Y82.8 Other medical devices associated with adverse incidents
CPT/HCPCS: 36415; 80048; 80053; 80164; 81001; 82962; 83605; 83735; 84100; 84443; 85025; 87040; 87077; 87086; 87088; 87186; 94668; 99285; 99406; A4216

== ENCOUNTER 2024-02-25 03:55 | Emergency (ER) | payer MEDICARE, MEDICAID, SELFPAY ==
[2024-02-25 03:57] VITALS: BP 132/67; PULSE 75; RESP 16; TEMP 36.4; O2SAT 100; BMI 26.4
--- NOTE | 2024-02-25 04:03 | CT_ITS ---
INDICATION: fall EXAMINATION: CT BRAIN - CT Head or Brain W/O Contrast Injection TECHNIQUE: Multiple axial images were obtained of the head with sagittal and coronal reconstructed images. Individualized dose optimization techniques were used for this CT. IV contrast dosage and agent: None. COMPARISON: None. FINDINGS: BRAIN PARENCHYMA: No evidence of an acute infarct or intracranial hemorrhage. No evidence of a mass. White matter changes consistent with moderate chronic microvascular disease. CSF SPACES: Moderate cerebral atrophy. CALVARIUM, SKULL BASE, PARANASAL SINUSES AND MASTOID AIR CELLS: No fracture. Mastoid air cells are clear. Visualized paranasal sinuses are unremarkable. ORBITS: The globes, extraocular muscles, optic nerves and retrobulbar fat are unremarkable. CT/Brain/Head without Contrast IMPRESSION: No fracture or acute intracranial abnormality. Electronically Signed: Jf Diaz DO at 5:42 EDT ,
--- NOTE | 2024-02-25 04:03 | RAD_ITS ---
INDICATION: fall EXAMINATION/TECHNIQUE: X-RAY - XR Pelvis 1 or 2 Views COMPARISON: None. FINDINGS: PELVIC BONES: No fracture. The sacroiliac joints are unremarkable. The pubic symphysis is not widened. HIPS: No evidence of a fracture or dislocation. SOFT TISSUES: Unremarkable. RAD/Pelvis 1 or 2 Views IMPRESSION: No evidence of a pelvic fracture. Electronically Signed: Jf Diaz DO at 5:52 EDT ,
--- NOTE | 2024-02-25 04:03 | CT_ITS ---
INDICATION: fall EXAMINATION: CT Spine Cervical W/O Contrast Injection TECHNIQUE: Helically acquired images were obtained of the cervical spine with sagittal and coronal reconstructed images. Individualized dose optimization techniques were used for this CT. IV contrast dosage and agent: None. COMPARISON: None. FINDINGS: VERTEBRAE: No fracture or subluxation. The craniocervical junction is unremarkable. Moderate degenerative changes. Anterior fixation at C6-C7. NECK SOFT TISSUES: The prevertebral soft tissues are unremarkable. No pathologically enlarged lymph nodes. THYROID: Unremarkable. LUNG APICES: Unremarkable. CT/Spine Cervical without Contras IMPRESSION: No fracture or subluxation. Electronically Signed: Jf Diaz DO at 5:47 EDT ,
--- NOTE | 2024-02-25 04:04 | EX.ED.GENINJ ---
HPI History of Present Illness Chief Complaint: Fall Detail of Chief Complaint: Fall Informant: patient Narrative Narrative: Patient presents to the emergency department via EMS from residential after sustaining a fall. Patient states it happened so fast he is not sure how he fell but he thinks he started to run and fell. Patient did strike his face. No loss of consciousness. Complains of pain in the chest and neck and head. Patient not anticoagulated. Patient has history of dementia. Denies abdominal pain. Denies hip or leg pain. [facility] Medical History (Updated 02/25/24 @ 06:[address] Shira Nuñez, DO) Atherosclerotic heart disease of [place] coronary artery without angina pectoris Hyperlipemia HTN (hypertension) Neuromuscular dysfunction of bladder, unspecified BPH (benign prostatic hyperplasia) Complication of urinary stent Alcohol abuse Psychotic disorder with delusions Dementia Home Medications ?Medication ?Instructions ?Recorded ?Last Taken ?Type atorvastatin 80 mg tablet 80 mg PO QHS CHOLESTEROL 05/26/23 Unknown History clopidogrel 75 mg tablet 75 mg PO DAILY BLOOD THINNER 05/26/23 Unknown History lisinopril 20 mg tablet 20 mg PO DAILY BLOOD PRESSURE 05/26/23 Unknown History metoprolol succinate 100 mg 100 mg PO DAILY BLOOD PRESSURE 05/26/23 Unknown History tablet,extended release 24 hr multivitamin (Daily Multi-Vitamin 1 tab PO DAILY HEALTH MAINTENANCE 05/26/23 Unknown History tablet) nifedipine 60 mg tablet,extended 60 mg PO DAILY BLOOD PRESSURE 05/26/23 Unknown History release tamsulosin 0.4 mg capsule 0.4 mg PO QHS BPH 05/26/23 Unknown History thiamine HCl (vitamin B1) 100 mg 100 mg PO DAILY SUPPLEMENT 05/26/23 Unknown History tablet acetaminophen 325 mg tablet 975 mg PO Q8H PRN MILD PAIN 09/28/23 Unknown History bisacodyl 10 mg rectal suppository 10 mg WV Q24H PRN CONSTIPATION 09/28/23 Unknown History hydrocortisone 2.5 % topical cream 1 applic topical BID HEMORRHOIDS 09/28/23 Unknown History with perineal applicator loperamide 2 mg capsule 2 mg PO Q4H PRN DIARRHEA 09/28/23 Unknown History magnesium hydroxide 400 mg/5 mL 30 ml PO Q24H PRN CONSTIPATION 09/28/23 Unknown History oral suspension (Milk of Magnesia) mineral oil 118 ml WV Q24H PRN CONSTIPATION 09/28/23 Unknown History polyethylene glycol 3350 17 17 g PO Q12H PRN CONSTIPATION 09/28/23 Unknown History gram/dose oral powder valproic acid (as sodium salt) 250 125 mg PO TID MOOD 09/28/23 Unknown History mg/5 mL oral solution lorazepam 0.5 mg tablet (Ativan) 0.5 mg PO Q6H PRN anxiety 02/15/24 Unknown History quetiapine 50 mg tablet (Seroquel) 50 mg PO BID dementia 02/15/24 Unknown History sertraline 50 mg tablet 50 mg PO DAILY mood 02/15/24 Unknown History lorazepam 0.5 mg tablet 0.5 mg PO DAILY #4 tabs 02/18/24 Unknown Rx lorazepam 0.5 mg tablet 0.5 mg PO Q6H PRN PRN anxiety #4 02/18/24 Unknown Rx tabs lorazepam 0.5 mg tablet 0.5 mg PO QHS #4 tabs 02/18/24 Unknown Rx Allergy/AdvReac Type Severity Reaction Status Date / Time milk AdvReac Intermediate Diarrhea Verified 02/25/24 03:56 Surgical History Presence of coronary angioplasty implant and graft Social History household members: none housing: residential Smoking Status: Current every day smoker tobacco type: cigarettes and pipe substance use type: does not use ROS ROS ED Review of Systems ROS Unobtainable: other Constitutional Constitutional ED: Reports lethargy; Denies chills, fever(s), sweats or weight loss Eyes Eyes: Denies blurry vision, change in vision or diplopia ENT ENT ED: Denies rhinorrhea or sore throat Cardiovascular Cardiovascular: Reports chest pain; Denies orthopnea or racing heartbeat Respiratory/Chest Respiratory/Chest: Denies cough, dyspnea, dyspnea on exertion, orthopnea or sputum Gastrointestinal Gastrointestinal: Denies abdominal pain, diarrhea, nausea or vomiting Genitourinary Genitourinary ED: Denies dysuria, hematuria or urinary frequency Musculoskeletal Musculoskeletal: Reports neck pain; Denies arthralgias, back pain or myalgias Integumentary Denies abscess, Abrasions or rash Neurologic Neurologic: Reports headache(s); Denies weakness Psychiatric Psychiatric: Denies anxiety, depression or suicidal thoughts Endocrine Endocrinology: Denies polydipsia, polyphagia or polyuria Hematologic/Lymphatic Hematologic/Lymphatic: Denies easy bleeding, easy bruising or lymphadenopathy Allergic/Immunologic Allergic/Immunologic ED: Denies mouth swelling, tongue swelling or urticaria EXAM Physical Exam Const Vital Signs: 02/25/24 03:57 02/25/24 04:07 Temperature 97.5 F L Temperature Source Temporal Pulse Rate 75 Respiratory Rate 16 Respiratory Effort Normal Blood Pressure 132/67 H Blood Pressure Mean 88 Pulse Ox 100 Oxygen Delivery Method Room Air Room Air Positive well nourished and well developed General Appearance ED: well developed and NAD HEENT Reports TM's clear and moist mucous membranes HEENT Narrative: Small 1 cm skin tear to the nose noted. No significant bony tenderness on exam. Patient also had some dried blood in the left nasal vault without evidence for septal hematoma normocephalic and atraumatic; Negative for trauma or tenderness Tympanic Membrane ED: Yes TM's clear Eyes PERRL and EOMs intact bilaterally General Eye ED: Negative for pale conjunctiva or scleral icterus Neck no lymphadenopathy, supple and no JVD Neck Narrative: Mild diffuse tenderness. No bony step-offs. General: tenderness Chest Wall palpation of chest normal Chest Narrative: Mild diffuse tenderness over the anterior chest wall that seems to reproduce his pain. No crepitus or subcu emphysema. No ecchymosis or bruising. Chest: Negative for tenderness Resp normal respiratory effort and clear to auscultation bilaterally Effort and Inspection: Negative for respiratory distress or pain with movement Auscultation: Negative for rhonchi, wheezes or diminished lung sounds Cardio regular rate, regular rhythm, S1 normal heart sound, S2 normal heart sound and no murmurs Peripheral Pulses: pulses 2+ throughout GI normal to inspection, nondistended, normoactive bowel sounds, soft to palpation, non-tender, non-distended and no masses Back/Spine no CVA tenderness and no thoracic nor lumbar tenderness Extremity normal to inspection General Extremety ED: Negative for edema General Extremity: Negative for edema Neuro oriented x3, CN's II-XII intact bilaterally, no sensory deficits noted and gait normal Sensorium / Orientation: awake, alert, oriented to person, oriented to place and oriented to time Motor Exam: strength 5/5 throughout and strength abnormal Psych mental status grossly normal Skin no rashes or lesions noted and no wounds MDM MDM MDM Narrative Medical decision making narrative: Patient presents from residential after sustaining a fall and injury to his nose. Complains of upper body pain mostly in his nose and face. Patient with history of dementia. He had a CT scan of the brain without contrast that was unremarkable. CT of the C-spine was negative for fracture. Patient had a chest x-ray and x-ray of the pelvis that was unremarkable. He clinically looks well. He has a small superficial flap laceration to the nose that is well-approximated and there is no bleeding and I feel requires no repair. We will ambulate patient in the department. Will discharge back to residential Lab Data Attestation: I reviewed the patient's lab results. Radiography Diagnostic Testing: Clinical Impression(s) from Imaging Studies Brain CT 02/25/24 04:03 IMPRESSION: No fracture or acute intracranial abnormality. Electronically Signed: Jf Diaz DO at 5:42 EDT , Cervical Spine CT 02/25/24 04:03 IMPRESSION: No fracture or subluxation. Electronically Signed: Jf Diaz DO at 5:47 EDT , Pelvis X-Ray 02/25/24 04:03 IMPRESSION: No evidence of a pelvic fracture. Electronically Signed: Jf Diaz DO at 5:52 EDT , Chest X-Ray 02/25/24 04:35 IMPRESSION: No acute abnormality. Electronically Signed: Jf Diaz DO at 5:50 EDT , 1 view chest x-ray obtained interpreted by myself as no evidence of infiltrate or pneumothorax or rib fracture or acute disease process. Radiology in agreement. 1 view x-ray of the pelvis obtained interpreted by myself as no evidence of fractures. Radiology in agreement. Discharge Plan Triage Chief Complaint: Fall ED Provider: Shira Nuñez Dx/Rx/DC Orders Clinical Impression: Fall, Contusion of face, Laceration of nose Instructions: ED Facial Contusion, ED Fall with Uncertain Cause, ED Skin Tear (Skin Avulsion) Prescriptions: No Action atorvastatin 80 mg tablet 80 mg PO QHS clopidogrel 75 mg tablet 75 mg PO DAILY lisinopril 20 mg tablet 20 mg PO DAILY metoprolol succinate 100 mg tablet extended release 24 hr 100 mg PO DAILY multivitamin [Daily Multi-Vitamin] Tablet 1 tab PO DAILY nifedipine 60 mg tablet extended release 60 mg PO DAILY tamsulosin 0.4 mg capsule 0.4 mg PO QHS thiamine HCl (vitamin B1) 100 mg tablet 100 mg PO DAILY acetaminophen 325 mg tablet 975 mg PO Q8H PRN (Reason: MILD PAIN ) bisacodyl 10 mg suppository 10 mg WV Q24H PRN (Reason: CONSTIPATION ) mineral oil Enema 118 ml WV Q24H PRN (Reason: CONSTIPATION ) hydrocortisone 2.5 % cream with perineal applicator 1 applic topical BID Rx Instructions: APPLY ONE APPLICATION TWICE DAILY TO RECTUM FOR HEMORRHOIDS. loperamide 2 mg capsule 2 mg PO Q4H PRN (Reason: DIARRHEA ) Rx Instructions: administer after each loose stool until symptoms controlled; do not exceed 8 mg per 24 hrs magnesium hydroxide [Milk of Magnesia] 400 mg/5 mL suspension 30 ml PO Q24H PRN (Reason: CONSTIPATION ) polyethylene glycol 3350 17 gram/dose powder 17 g PO Q12H PRN (Reason: CONSTIPATION ) valproic acid (as sodium salt) 250 mg/5 mL solution 125 mg PO TID lorazepam [Ativan] 0.5 mg tablet 0.5 mg PO Q6H PRN (Reason: anxiety) quetiapine [Seroquel] 50 mg tablet 50 mg PO BID sertraline 50 mg tablet 50 mg PO DAILY lorazepam 0.5 mg Tablet 0.5 mg PO QHS Qty: 4 0RF lorazepam 0.5 mg Tablet 0.5 mg PO DAILY Qty: 4 0RF lorazepam 0.5 mg Tablet 0.5 mg PO Q6H PRN PRN (Reason: anxiety) Qty: 4 0RF Primary Care Provider: Ramy Jay Referrals: Ramy Jay MD [Primary Care Provider] - 3-5 Days Print Language: Romansh Disposition Disposition: Nursing Home Facility
--- NOTE | 2024-02-25 04:35 | RAD_ITS ---
INDICATION: fall EXAMINATION/TECHNIQUE: X-RAY - XR Chest 1 View COMPARISON: None. FINDINGS: LINES/DEVICES: None. LUNGS: No consolidation or evidence of an effusion. No evidence of edema or a pneumothorax. MEDIASTINUM AND CARDIOVASCULAR STRUCTURES: Cardiac silhouette is normal in size and contour. Post CABG changes. BONES AND SOFT TISSUES: No acute abnormality. RAD/Chest 1 View (Portable) IMPRESSION: No acute abnormality. Electronically Signed: Jf Diaz DO at 5:50 EDT ,
[2024-02-25 05:55] VITALS: BP 131/61; PULSE 97; O2SAT 98
[2024-02-25 06:49] VITALS: BP 131/61; PULSE 97; RESP 16; TEMP 36.3; O2SAT 98
--- NOTE | 2024-02-25 06:55 | ED.RN ---
Report called to Katerina Lucero.
== END 2024-02-25 07:16 | disposition skilled nursing facility (03) ==
PROVIDERS: Emergency Provider Emergency Medicine; PCP Family Medicine; Visit Provider Emergency Medicine
DX: S01.21XA Laceration without foreign body of nose, initial encounter (principal); F03.90 Unspecified dementia, unspecified severity, without behavioral disturbance, psychotic disturbance, mood disturbance, and anxiety; E78.5 Hyperlipidemia, unspecified; F17.210 Nicotine dependence, cigarettes, uncomplicated; I10 Essential (primary) hypertension; I25.10 Atherosclerotic heart disease of native coronary artery without angina pectoris; W19.XXXA Unspecified fall, initial encounter; Y92.129 Unspecified place in nursing home as the place of occurrence of the external cause; Z79.899 Other long term (current) drug therapy; Z79.02 Long term (current) use of antithrombotics/antiplatelets; N40.0 Benign prostatic hyperplasia without lower urinary tract symptoms; F17.290 Nicotine dependence, other tobacco product, uncomplicated
CPT/HCPCS: 70450; 71045; 72125; 72170; 99282

== ENCOUNTER 2024-03-02 01:22 | Emergency (ER) | payer MEDICARE, MEDICAID, SELFPAY ==
[2024-03-02] VITALS (10 sets, daily range): BP systolic 108–149; BP diastolic 47–88; PULSE 65–88; RESP 12–18; TEMP 36.1–36.9; O2SAT 96–100; BMI 26.4
--- NOTE | 2024-03-02 01:40 | EKG12_ITS ---
Test Reason : CP Blood Pressure : / mmHG Vent. Rate : 077 BPM Atrial Rate : 077 BPM P-R Int : 158 ms QRS Dur : 058 ms QT Int : 376 ms P-R-T Axes : 030 007 021 degrees QTc Int : 425 ms Normal sinus rhythm Low voltage QRS Borderline ECG Confirmed by Alonzo Clifton ([id number]), film and video editor ANDERSON CORADO ([id number]) on 03/05/2024 11:01:11 AM Referred By: KENDAL Confirmed By:Alonzo Clifton
--- NOTE | 2024-03-02 01:40 | RAD_ITS ---
INDICATION: chest pain EXAMINATION/TECHNIQUE: X-RAY - XR Chest 1 View COMPARISON: CR ChestSep 2023 4:35am FINDINGS: LINES/DEVICES: None. LUNGS: Small left pleural effusion. No pneumothorax. MEDIASTINUM AND CARDIOVASCULAR STRUCTURES: Cardiac silhouette not enlarged. Central airways and mediastinal contour are unremarkable. BONES AND SOFT TISSUES: Unremarkable. RAD/Chest 1 View (Portable) IMPRESSION: Small left pleural effusion. Electronically Signed: Thomas Johnson MD at 3:12 EDT ,
--- NOTE | 2024-03-02 01:48 | RAD_ITS ---
INDICATION: TRAUMA EXAMINATION/TECHNIQUE: X-RAY - LEFT XR Hand Min 3 Views 3 VIEWS COMPARISON: No relevant prior comparison study available FINDINGS: SOFT TISSUES: No soft tissue swelling or gas. Radiopaque foreign bodies in the soft tissues near the index finger consistent with prior penetrating wound. 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 There is possible nondisplaced fracture of the tuft in the distal phalanx and the middle finger. No sclerotic or destructive changes observed. RAD/Hand Min 3 Views IMPRESSION: There is possible nondisplaced fracture of the tuft in the distal phalanx and the middle finger. Electronically Signed: Thomas Johnson MD at 3:15 EDT ,
[2024-03-02 01:55] LABS: Absolute Neutrophil Count 7.5 X10^3/uL (2.0-7.7); Basophil# 0.03 X10^3/uL; Basophil% 0.3 % (0-1); Eosinophil# 0.14 X10^3/uL; Eosinophils% 1.4 % (0-5); Hematocrit 36.5 % (40-54); Lymphocyte % 14.7 % (19-41); Mean Corp Hgb Conc 32.9 g/dL (32-36); Mean Corpuscular Volume 91.3 fL (80-94); Mean Platelet Vol. 10.8 fl (6.2-12.0); Monocyte# 1.02 X10^3/uL; NRBC Flagged by Analyzer 0 % (0-5); Neutrophil # 7.46 X10^3/uL (2.7-7.7); Neutrophil % 73.2 % (47-70); Platelet Count 243 K/mm3 (150-450); RBC Distribution Width CV 13.3 % (11.6-14.6); White Blood Count 10.2 K/mm3 (4.4-11.0)
[2024-03-02 02:21] LABS: Anion Gap 8 (5-15); BUN 15 mg/dL (7-18); BUN/Creat Ratio 10.6 RATIO (10-20); Calcium,Total 8.7 mg/dL (8.5-10.1); Chloride 109 mmol/L (98-107); Creatinine, Serum 1.42 mg/dL (0.70-1.30); EST Glomerular Filtration Rate 51 mL/min (>60); Est Glom Filt Rate - Afr Amer 62 mL/min (>60); Estimated Creatinine Clearance 38.69 ml/min; Glucose 135 mg/dL (74-106); Potassium 3.8 mmol/L (3.5-5.1); Sodium Level 142 mmol/L (136-145); Troponin-I HS (w/2H Reflex) 10 pg/mL (3.0-78.0)
--- NOTE | 2024-03-02 02:36 | ED.VIS.CHEST ---
HPI History of Present Illness Chief Complaint: Chest Pain Informant: patient Narrative Narrative: Patient is a 78-year-old male with history of dementia, prior CABG, indwelling Olvera catheter secondary to neurogenic bladder, alcohol abuse and delirium presenting for evaluation after a fall. Patient is in a memory care unit. Reportedly he had a fall around midnight tonight. He injured his left middle finger in the fall as well. Patient apparently was complaining of some chest pain before the fall. Patient is a poor historian however. Patient is not on any blood thinners but does take Plavix. Patient now states that he thinks he was trying to go too fast and that is why he fell. Chart review does show that patient was seen in our ER 6 days ago for fall and at that time he was also complaining of some chest pain as well as neck and head pain. At that time he had a CT of the head and C-spine as well as a chest x-ray and x-ray of the pelvis which did not show any acute traumatic injuries. Patient thought that he got up too fast or started to run and that is why his fell. [facility] Medical History Acute alteration in mental status Elevated serum creatinine Leukocytosis Complicated urinary tract infection Atherosclerotic heart disease of [place] coronary artery without angina pectoris Hyperlipemia HTN (hypertension) Neuromuscular dysfunction of bladder, unspecified BPH (benign prostatic hyperplasia) Complication of urinary stent Alcohol abuse Psychotic disorder with delusions Dementia Home Medications ?Medication ?Instructions ?Recorded ?Last Taken ?Type atorvastatin 80 mg tablet 80 mg PO QHS CHOLESTEROL 05/26/23 Unknown History clopidogrel 75 mg tablet 75 mg PO DAILY BLOOD THINNER 05/26/23 Unknown History lisinopril 20 mg tablet 20 mg PO DAILY BLOOD PRESSURE 05/26/23 Unknown History metoprolol succinate 100 mg 100 mg PO DAILY BLOOD PRESSURE 05/26/23 Unknown History tablet,extended release 24 hr multivitamin (Daily Multi-Vitamin 1 tab PO DAILY HEALTH MAINTENANCE 05/26/23 Unknown History tablet) nifedipine 60 mg tablet,extended 60 mg PO DAILY BLOOD PRESSURE 05/26/23 Unknown History release tamsulosin 0.4 mg capsule 0.4 mg PO QHS BPH 05/26/23 Unknown History thiamine HCl (vitamin B1) 100 mg 100 mg PO DAILY SUPPLEMENT 05/26/23 Unknown History tablet acetaminophen 325 mg tablet 975 mg PO Q8H PRN MILD PAIN 09/28/23 Unknown History bisacodyl 10 mg rectal suppository 10 mg WY Q24H PRN CONSTIPATION 09/28/23 Unknown History hydrocortisone 2.5 % topical cream 1 applic topical BID HEMORRHOIDS 09/28/23 Unknown History with perineal applicator loperamide 2 mg capsule 2 mg PO Q4H PRN DIARRHEA 09/28/23 Unknown History magnesium hydroxide 400 mg/5 mL 30 ml PO Q24H PRN CONSTIPATION 09/28/23 Unknown History oral suspension (Milk of Magnesia) mineral oil 118 ml WY Q24H PRN CONSTIPATION 09/28/23 Unknown History polyethylene glycol 3350 17 17 g PO Q12H PRN CONSTIPATION 09/28/23 Unknown History gram/dose oral powder valproic acid (as sodium salt) 250 125 mg PO TID MOOD 09/28/23 Unknown History mg/5 mL oral solution lorazepam 0.5 mg tablet (Ativan) 0.5 mg PO Q6H PRN anxiety 02/15/24 Unknown History quetiapine 50 mg tablet (Seroquel) 50 mg PO BID dementia 02/15/24 Unknown History sertraline 50 mg tablet 50 mg PO DAILY mood 02/15/24 Unknown History lorazepam 0.5 mg tablet 0.5 mg PO DAILY #4 tabs 02/18/24 Unknown Rx lorazepam 0.5 mg tablet 0.5 mg PO Q6H PRN PRN anxiety #4 02/18/24 Unknown Rx tabs lorazepam 0.5 mg tablet 0.5 mg PO QHS #4 tabs 02/18/24 Unknown Rx cephalexin 500 mg capsule 500 mg PO Q8H #15 caps 03/02/24 Unknown Rx Allergy/AdvReac Type Severity Reaction Status Date / Time milk AdvReac Intermediate Diarrhea Verified 03/02/24 01:22 Surgical History Presence of coronary angioplasty implant and graft Social History household members: none housing: group home Smoking Status: Current every day smoker tobacco type: cigarettes and pipe substance use type: does not use ROS ROS ED ROS Narrative Patient has an obvious laceration to the left middle finger. Has dementia and is a poor historian otherwise. Does report some chest pain. Review of Systems ROS Unobtainable: due to mental status EXAM Physical Exam Const Vital Signs: 03/02/24 01:22 03/02/24 01:51 03/02/24 01:52 Temperature 97 F L Temperature Source Temporal Pulse Rate 76 Respiratory Rate 12 Respiratory Effort Normal Blood Pressure 123/50 H Blood Pressure Mean 74 Pulse Ox 97 Oxygen Delivery Method Room Air Room Air 03/02/24 02:22 03/02/24 03:00 03/02/24 04:00 Temperature Temperature Source Pulse Rate 74 88 76 Respiratory Rate 18 15 18 Respiratory Effort Blood Pressure 126/72 H 120/70 128/70 H Blood Pressure Mean 90 86 89 Pulse Ox 100 99 98 Oxygen Delivery Method Room Air Room Air Room Air 03/02/24 05:00 03/02/24 06:00 Temperature Temperature Source Pulse Rate 73 74 Respiratory Rate 18 18 Respiratory Effort Blood Pressure 135/66 H 125/69 H Blood Pressure Mean 89 87 Pulse Ox 96 97 Oxygen Delivery Method Room Air Room Air Positive well nourished and well developed General Appearance ED: well developed and NAD HEENT Reports moist mucous membranes HEENT Narrative: Bilateral cerumen impaction. Healing ecchymosis on the nose and around the right eye consistent with his recent fall. No cephalhematoma appreciated. Eyes PERRL and EOMs intact bilaterally Neck supple General: Negative for tenderness Chest Wall inspection of chest normal and palpation of chest normal Chest Narrative: No chest wall crepitus appreciated. Resp normal respiratory effort and clear to auscultation bilaterally Cardio regular rate and regular rhythm GI normal to inspection, nondistended, normoactive bowel sounds and soft to palpation Back/Spine Cervical Spine: Negative for cervical spine tenderness Extremity Extremity Narrative: No obvious deformity of the extremities. No pinpoint bony tenderness. General Extremety ED: Negative for edema General Extremity: Negative for edema Neuro Sensorium / Orientation: awake, alert and oriented to person Motor Exam: strength 5/5 throughout; Negative for general weakness Psych mental status grossly normal Mood & Affect: Negative for depressed or anxious Skin Skin Narrative: 2 cm full thickness laceration to the left middle finger tip pad creating a flap. No obvious deformity. No nailbed laceration appreciated. There are some ecchymosis to the left fourth finger present but no deformity. MDM MDM MDM Narrative Medical decision making narrative: Patient evaluated for fall. Patient reporting chest pain as well. This patient second fall within a week. Does have a history of dementia. Will obtain workup including CBC, BMP, delta high sensitive troponin (at report chest pain), EKG, urinalysis and evaluation for his hand injury. Patient does have a mild anemia of 12.0. His most recent hemoglobin was in January and was 14.0. Creatinine is mildly elevated but appears to be at his baseline. He has a normal BUN and low suspicion for GI bleed. High sensitive troponin is normal/stable at 10 and 9 respectively. Urinalysis is not consistent with infection. Urine culture sent because he does have an indwelling Olvera catheter. Chest x-ray viewed by myself as well as radiology does not show any acute process but does show small left pleural effusion. Patient is not hypoxic in the emergency room. X-ray of the left hand does show a possible nondisplaced fracture of the tuft of the distal phalanx of the middle finger. This is where his laceration is. Will consider this an open fracture. will place patient on antibiotics to help prevent osteomyelitis or associate infection. Laceration repair is performed, see procedure note. Patient tolerated this well. Patient be discharged back to nursing facility. Will update Tetanus. History & Record Review Additional record(s) reviewed:: Prior ED visit Lab Data Attestation: I reviewed the patient's lab results. Labs: Laboratory Results - last 24 hr 03/02/24 03/02/24 03/02/24 01:45 03:58 04:55 WBC 10.2 RBC 4.00 L Hgb 12.0 L Hct 36.5 L MCV 91.3 MCH 30.0 MCHC 32.9 RDW Std Deviation 45.0 H RDW Coeff of Asael 13.3 Plt Count 243 MPV 10.8 Immature Gran % (Auto) 0.400 Neut % (Auto) 73.2 H Lymph % (Auto) 14.7 L [place] % (Auto) 10.0 Eos % (Auto) 1.4 Baso % (Auto) 0.3 Absolute Neuts (auto) 7.5 Absolute Lymphs (auto) 1.50 Nucleated RBC % 0 Sodium 142 Potassium 3.8 Chloride 109 H Carbon Dioxide 25.0 Anion Gap 8 BUN 15 Creatinine 1.42 H Estim Creat Clear Calc 38.69 Est GFR (MDRD) Af Amer 62 Est GFR (MDRD) Non-Af 51 L BUN/Creatinine Ratio 10.6 Glucose 135 H Calcium 8.7 Troponin I High Sens 10 9 Urine Color Yellow Urine Clarity Sl. Cloudy Urine pH 7.0 Ur Specific [place] 1.005 Urine Protein Negative Urine Glucose (UA) Normal Urine Ketones Negative Urine Occult Blood 50 H Urine Nitrite Negative Urine Bilirubin Negative Urine Urobilinogen Normal Ur Leukocyte Esterase 25 H Urine RBC 0-5 SEEN Urine WBC 0-5 SEEN Ur Squamous Epith Cells 0-5 SEEN Urine Bacteria 0 SEEN Urine Mucus 0 SEEN Radiography Diagnostic Testing: Clinical Impression(s) from Imaging Studies Chest X-Ray 03/02/24 01:40 IMPRESSION: Small left pleural effusion. Electronically Signed: Thomas Johnson MD at 3:12 EDT , Hand X-Ray 03/02/24 01:48 IMPRESSION: There is possible nondisplaced fracture of the tuft in the distal phalanx and the middle finger. Electronically Signed: Thomas Johnson MD at 3:15 EDT , Rhythm Strip Rhythm Strip: Sinus Rhythm Rate: 77 Ectopy: None EKG Initial EKG: Attestation: I personally reviewed and interpreted this EKG as follows: Interpretation: Sinus Rhythm Comments: Normal sinus rhythm at a rate of 77 bpm Normal axis Normal intervals Normal ST segments Low voltage QRS Procedures Lacerations Middle finger : Length: 0.79 in Depth: Sub Q Shape: Flap Prep: Chlorhexadine Laceration repair: Digital block, Irrigated (250cc) and Lidocaine Number of Sutures/Fox: 5 Suture Information: Ethilon, Simple and 4-0 Discharge Plan Triage Chief Complaint: Chest Pain Other Complaint: Laceration ED Provider: Sarah Walker Dx/Rx/DC Orders Clinical Impression: Laceration of left middle finger, History of dementia, Open fracture of tuft of distal phalanx of finger, Chest pain Instructions: ED Chest Pain, Uncertain Cause, ED Fracture, Finger, Open, ED Laceration, Hand: All Closures Prescriptions: New cephalexin 500 mg capsule 500 mg PO Q8H Qty: 15 0RF No Action atorvastatin 80 mg tablet 80 mg PO QHS clopidogrel 75 mg tablet 75 mg PO DAILY lisinopril 20 mg tablet 20 mg PO DAILY metoprolol succinate 100 mg tablet extended release 24 hr 100 mg PO DAILY multivitamin [Daily Multi-Vitamin] Tablet 1 tab PO DAILY nifedipine 60 mg tablet extended release 60 mg PO DAILY tamsulosin 0.4 mg capsule 0.4 mg PO QHS thiamine HCl (vitamin B1) 100 mg tablet 100 mg PO DAILY acetaminophen 325 mg tablet 975 mg PO Q8H PRN (Reason: MILD PAIN ) bisacodyl 10 mg suppository 10 mg WY Q24H PRN (Reason: CONSTIPATION ) mineral oil Enema 118 ml WY Q24H PRN (Reason: CONSTIPATION ) hydrocortisone 2.5 % cream with perineal applicator 1 applic topical BID Rx Instructions: APPLY ONE APPLICATION TWICE DAILY TO RECTUM FOR HEMORRHOIDS. loperamide 2 mg capsule 2 mg PO Q4H PRN (Reason: DIARRHEA ) Rx Instructions: administer after each loose stool until symptoms controlled; do not exceed 8 mg per 24 hrs magnesium hydroxide [Milk of Magnesia] 400 mg/5 mL suspension 30 ml PO Q24H PRN (Reason: CONSTIPATION ) polyethylene glycol 3350 17 gram/dose powder 17 g PO Q12H PRN (Reason: CONSTIPATION ) valproic acid (as sodium salt) 250 mg/5 mL solution 125 mg PO TID lorazepam [Ativan] 0.5 mg tablet 0.5 mg PO Q6H PRN (Reason: anxiety) quetiapine [Seroquel] 50 mg tablet 50 mg PO BID sertraline 50 mg tablet 50 mg PO DAILY lorazepam 0.5 mg Tablet 0.5 mg PO QHS Qty: 4 0RF lorazepam 0.5 mg Tablet 0.5 mg PO DAILY Qty: 4 0RF lorazepam 0.5 mg Tablet 0.5 mg PO Q6H PRN PRN (Reason: anxiety) Qty: 4 0RF Primary Care Provider: Ramy Jay Referrals: Ramy Jay MD [Primary Care Provider] - Luis Carlos Barnard MD [Med Staff - Active Staff] - 1 Week Activity Restrictions/Additional Instructions: The sutures need to be removed in approximately 10 days. There is a slight nondisplaced fracture of the finger anything cut. This is why Ross was prescribed antibiotics. He had a slight anemia with a hemoglobin 12.0. Everything else was largely normal. Please follow-up with his primary care doctor and outpatient with orthopedics. Print Language: Maltese Disposition Disposition: Home, Self Care
[2024-03-02 03:52] LABS: Reflex Troponin-HS? (from REC) Y
[2024-03-02 04:23] LABS: Troponin-I HS 9 pg/mL (3.0-78.0)
[2024-03-02] MEDS: Lidocaine 1% (20 ml mdv) 20 ML Vial INFILT (04:58)
[2024-03-02 05:00] LABS: Bacteria 0 SEEN /hpf (None Seen); Mucous, Urine 0 SEEN /hpf (<or=2+)
[2024-03-02 05:01] LABS: Color, Urine Yellow (Yellow); Glucose, Dipstick Normal (Normal); Ketone-Dipstick Negative (Negative); Leukocyte Esterase-Dipstick 25 /ul (Negative); Nitrite-Dipstick Negative (Negative); Occult Blood-Urine 50 /ul (Negative); Protein-Dipstick Negative (Negative); Specific Gravity, Urine 1.005 (1.002-1.030); Urine Bilirubin Dipstick Negative (Negative); Urine Clarity Sl. Cloudy (Clear); Urine Urobilinogen Normal (Normal)
[2024-03-02 05:08] LABS: Red Blood Cells-Urine 0-5 SEEN /hpf (0-5); Squamous Epithelial Cells - UA 0-5 SEEN /hpf (0-5); White Blood Cells 0-5 SEEN /hpf (0-5)
[2024-03-02] MEDS: Diphth,Pertuss(Acell),Tet Vac 0.5 ML Vial IM (06:15)
--- NOTE | 2024-03-02 07:07 | ED.RN ---
This RN called report to TUNG Jin at [place] at [phone].
== END 2024-03-02 09:57 | disposition home or self-care (01) ==
PROVIDERS: Emergency Provider Emergency Medicine; PCP Family Medicine; Visit Provider Emergency Medicine
DX: S61.213A Laceration without foreign body of left middle finger without damage to nail, initial encounter (principal); F03.90 Unspecified dementia, unspecified severity, without behavioral disturbance, psychotic disturbance, mood disturbance, and anxiety; R07.9 Chest pain, unspecified; F17.210 Nicotine dependence, cigarettes, uncomplicated; I25.10 Atherosclerotic heart disease of native coronary artery without angina pectoris; E78.5 Hyperlipidemia, unspecified; I10 Essential (primary) hypertension; D64.9 Anemia, unspecified; S62.633A Displaced fracture of distal phalanx of left middle finger, initial encounter for closed fracture; W19.XXXA Unspecified fall, initial encounter; Y92.89 Other specified places as the place of occurrence of the external cause; Z95.1 Presence of aortocoronary bypass graft; Z79.899 Other long term (current) drug therapy; Z79.02 Long term (current) use of antithrombotics/antiplatelets; N40.0 Benign prostatic hyperplasia without lower urinary tract symptoms; Z23 Encounter for immunization
CPT/HCPCS: 12001; 71045; 73130; 80048; 81001; 84484; 85025; 87077; 87086; 87088; 87186; 90715; 93005; 99285; J7030; A4216